=== PATIENT | female | born 1975 | race Caucasian/White ===

== ENCOUNTER 2016-07-26 00:43 | Emergency (ER) | payer MEDICAID ==
[2016-07-26] MEDS ORDERED: oxyCODONE/ACET 5/325 Prepack 4 PO STA (01:32)
[2016-07-26] MEDS ORDERED: oxyCODONE/ACET 5/325 Prepack 4 PO ONE (01:39)
[2016-07-26] MEDS ORDERED: AMOXICILLIN 250 MG Prepack 6 PO ONE (01:39)
[2016-07-26] MEDS ORDERED: AMOXICILLIN 250 MG Prepack 6 PO SCH (06:00)
== END 2016-07-26 01:55 | disposition home or self-care (01) ==
DX: K04.7 Periapical abscess without sinus (principal); F17.200 Nicotine dependence, unspecified, uncomplicated; K75.9 Inflammatory liver disease, unspecified

== ENCOUNTER 2016-08-31 15:21 | Outpatient (CLI) | payer MEDICAID | END 2016-08-31 15:22 | disposition home or self-care (01) | DX: M77.31 Calcaneal spur, right foot (principal) ==

== ENCOUNTER 2016-11-09 20:51 | Emergency (ER) | payer MEDICAID ==
[2016-11-09] MEDS ORDERED: SODIUM CHLORIDE 0.9% 1,000 ML IV ONE (22:26)
[2016-11-09] MEDS ORDERED: ONDANSETRON 4 MG/2 ML VIAL IVP STA (22:26)
--- NOTE | 2016-11-09 22:31 | ED Physician Documentation ---
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 Review of Systems Constitutional: reports: Myalgias, Fatigue. denies: Fever, Chills Eyes: denies: Decreased vision Ears: denies: Ear pain Nose: denies: Congestion Throat: denies: Sore throat Cardiac: denies: Chest pain / pressure, Palpitations Respiratory: denies: Dyspnea, Cough GI: reports: Abdominal Pain, Nausea, Vomiting, Diarrhea : denies: Dysuria, Frequency Skin: denies: Rash Musculoskeletal: denies: Neck pain Neurologic: denies: Generalized weakness, Focal weakness, Numbness PD PAST MEDICAL HISTORY - Past Medical History Cardiovascular: None Respiratory: None Neuro: Head injury Endocrine/Autoimmune: None GI: Hepatitis EMERY WHEEL MOLDER: None : Incontinence, Frequency HEENT: Other Psych: Depression Musculoskeletal: None Derm: None - Past Surgical History Past Surgical History: Yes General: Cholecystectomy Ortho: Other /EMERY WHEEL MOLDER: LEEP (Cervical surgery) Neuro: Other - Present Medications Home Medications: Ambulatory Orders Medication Instructions Recorded Confirmed Amoxicillin 500 mg PO TID #30 capsule 07/26/16 oxyCODONE/ACET 5/325 [Percocet 5 1 each PO Q4-6H PRN #12 tablet 07/26/16 mg/325 mg] Ondansetron Odt [Zofran] 4 mg TL Q6H PRN #10 tablet 11/10/16 - Allergies Allergies/Adverse Reactions: Allergies Allergy/AdvReac Type Severity Reaction Status Date / Time tramadol AdvReac Severe Itching Verified 11/09/16 21:32 hydrocodone bitartrate * AdvReac Intermediate Nausea Verified 11/09/16 21:32 [From Vicodin] Latex, Natural Rubber AdvReac Intermediate Itching Verified 11/09/16 21:32 - Social History Does the pt smoke?: Yes Smoking Status: Current every day smoker Does the pt drink ETOH?: No Does the pt have substance abuse?: Yes - Immunizations Immunizations are current?: Yes - POLST Patient has POLST: No PD ED PE NORMAL - Vitals Vital signs reviewed: Yes (Hypertensive) - General General: Well developed/nourished, Other (The patient does appear miserable.) - HEENT HEENT: Atraumatic, PERRL, EOMI, Other (Dry mucous membranes) - Neck Neck: Supple, no meningeal sign, No bony TTP - Cardiac Cardiac: RRR, No murmur - Respiratory Respiratory: No respiratory distress, Clear bilaterally - Abdomen Abdomen: Soft, Other - Back Back: No CVA TTP, No spinal TTP - Derm Derm: Normal color, Warm and dry, No rash - Extremities Extremities: No deformity, No edema - Neuro Neuro: No motor deficit, No sensory deficit - Psych Psych: Normal mood, Normal affect Results - Vitals Vitals: Vital Signs - 24 hr 11/09/16 11/10/16 21:25 00:20 Temperature 36.0 C L Heart Rate 90 83 Respiratory 17 16 Rate Blood Pressure 165/111 H 149/91 H O2 Saturation 98 97 Oxygen O2 Source Room air - Labs Labs: Laboratory Tests 11/09/16 11/09/16 11/09/16 22:40 22:40 23:35 WBC 12.7 H RBC 5.19 Hgb 15.0 Hct 45.8 MCV 88.2 MCH 29.0 MCHC 32.9 RDW 13.4 Plt Count 163 MPV 9.5 Neut # 11.3 H Lymph # 0.8 L [place] # 0.5 Eos # 0.1 Baso # 0.1 Absolute Nucleated RBC 0.00 Nucleated RBCs 0.0 Sodium 138 Potassium 3.2 L Chloride 107 Carbon Dioxide 21 Anion Gap 10.0 BUN 9 Creatinine 0.6 Estimated GFR (MDRD) 111 Glucose 144 H Calcium 9.3 Total Bilirubin 0.8 AST 18 ALT 18 Alkaline Phosphatase 78 Total Protein 7.5 Albumin 4.7 Globulin 2.8 Albumin/Globulin Ratio 1.7 Lipase 21 L Urine Color YELLOW Urine Clarity CLEAR Urine pH 5.5 Ur Specific [place] 1.025 Urine Protein TRACE Urine Glucose (UA) NEGATIVE Urine Ketones 15 H Urine Occult Blood TRACE-LYSE Urine Nitrite NEGATIVE Urine Bilirubin NEGATIVE Urine Urobilinogen 0.2 (NORMAL) Ur Leukocyte Esterase NEGATIVE Ur Microscopic Review NOT INDICATED Urine Culture Comments NOT INDICATED Urine HCG, Qual NEGATIVE Procedures - IVC sono (time) 2225 Bedside IVC sono: IVC measures (cm) (1), IVC collapsed c insp (cm) (complete), Dehydration PD MEDICAL DECISION MAKING - ED course Complexity details: reviewed old records, reviewed results, re-evaluated patient , considered differential, d/w patient ED course: 40-year-old female with no significant past medical history has developed acute nausea vomiting and diarrhea this afternoon. She is mildly dehydrated on interrogation of the inferior vena cava. Here in the emergency department she is administered intravenous saline and Zofran. She does have exposure to 2 children who have been ill with diarrhea and vomiting and they have resolved their illnesses. Departure - Departure Disposition: 01 Home, Self Care Clinical Impression: Gastroenteritis Condition: Stable Instructions: ED Gastroenteritis Viral Follow-Up: Kareen Jeronimo ARNP [Primary Care Provider] - Prescriptions: Ondansetron Odt [Zofran] 4 mg TL Q6H PRN #10 tablet PRN Reason: Nausea / Vomiting
[2016-11-09] MEDS ORDERED: ONDANSETRON 4 MG/2 ML VIAL ONE (22:32)
[2016-11-09 22:48] LABS: BASOPHILS # (AUTO) 0.1 10^3/uL (0.0-0.1); BASOPHILS % (AUTO) 0.4 %; EOSINOPHILS # (AUTO) 0.1 10^3/uL (0.0-0.7); EOSINOPHILS % (AUTO) 0.8 %; HCT - HEMATOCRIT 45.8 % (37.0-47.0); LYMPHOCYTES # (AUTO) 0.8 10^3/uL (1.5-3.5); LYMPHOCYTES % (AUTO) 6.1 %; MEAN CORPUSCULAR HGB CONC 32.9 g/dL (32.0-36.0); MEAN CORPUSCULAR VOLUME 88.2 fL (81.0-99.0); MEAN PLATELET VOLUME 9.5 fL (7.9-10.8); MONOCYTES # (AUTO) 0.5 10^3/uL (0.0-1.0); MONOCYTES % (AUTO) 3.7 %; NEUTROPHILS # (AUTO) 11.3 10^3/uL (1.5-6.6); RED BLOOD COUNT 5.19 10^6/uL (4.20-5.40); RED CELL DISTRIBUTION WIDTH 13.4 % (12.0-15.0); UNCORRECTED WHITE BLOOD COUNT 12.7 x10^3/uL; WHITE BLOOD COUNT 12.7 x10^3/uL (4.8-10.8)
[2016-11-09 23:01] LABS: ALBUMIN/GLOBULIN RATIO 1.7 (1.0-2.2); BILIRUBIN,TOTAL 0.8 mg/dL (0.2-1.0); CALCIUM 9.3 mg/dL (8.5-10.3); CREATININE 0.6 mg/dL (0.4-1.0); POTASSIUM 3.2 mmol/L (3.5-5.0); TOTAL PROTEIN 7.5 g/dL (6.7-8.2)
[2016-11-09] MEDS ORDERED: POTASSIUM BICARB 25 MEQ TABLET PO STA (23:41)
[2016-11-09 23:43] LABS: BILIRUBIN,URINE NEGATIVE (NEGATIVE); PH,URINE 5.5 PH (5.0-7.5)
[2016-11-09 23:44] LABS: UA CHARGE (STRIP ONLY) YES; UR CULTURE IF IND NOT INDICATED
[2016-11-09 23:45] LABS: HCG UR QUAL NEGATIVE
[2016-11-09] MEDS ORDERED: POTASSIUM BICARB 25 MEQ TABLET PO ONE (23:59)
[2016-11-10] MEDS ORDERED: ONDANSETRON 4 MG/2 ML VIAL IVP STA (00:01)
[2016-11-10] MEDS ORDERED: ONDANSETRON 4 MG/2 ML VIAL ONE (00:10)
[2016-11-10] MEDS ORDERED: ACETAMINOPHEN 325 MG TABLET PO STA (00:37)
[2016-11-10] MEDS ORDERED: ONDANSETRON ODT 4 MG Prepack 2 TL PRN (00:40)
[2016-11-10] MEDS ORDERED: ACETAMINOPHEN 325 MG TABLET PO ONE (00:41)
[2016-11-10] MEDS ORDERED: POTASSIUM CHLORIDE 20 MEQ TABLET PO STA (01:05)
[2016-11-10] MEDS ORDERED: POTASSIUM CHLORIDE 20 MEQ TABLET PO ONE (01:07)
[2016-11-10] MEDS ORDERED: ONDANSETRON ODT 4 MG Prepack 2 TL ONE (01:40)
[2016-11-10 01:51] VITALS: BP 141/71
== END 2016-11-10 01:52 | disposition home or self-care (01) ==
LOC: ED 20:51
DX: K52.9 Noninfective gastroenteritis and colitis, unspecified (principal); K75.9 Inflammatory liver disease, unspecified; F17.200 Nicotine dependence, unspecified, uncomplicated
CPT/HCPCS: 36415; 80053; 81003; 81025; 83690; 85025; 87045; 87046; 96374; 96376; 99283; A9270; 81001; 87086

== ENCOUNTER 2017-01-15 12:05 | Emergency (ER) | payer MEDICAID ==
--- NOTE | 2017-01-15 13:36 | ED Physician Documentation ---
PD HPI SKIN - Stated complaint Stated Complaint: LUMP UNDER R ARM - Chief complaint Chief Complaint: Wound - History obtained from History obtained from: Patient - History of Present Illness Timing - onset: How many days ago (several) Timing - duration: Days Timing - details: Gradual onset, Still present, Waxing and waning Quality / character: Painful, Other Associated symptoms: No: Fever, Myalgias Review of Systems Constitutional: denies: Fever, Chills Nose: denies: Rhinorrhea / runny nose, Congestion Throat: denies: Sore throat Respiratory: denies: Cough GI: denies: Nausea, Vomiting, Diarrhea Skin: denies: Rash PD PAST MEDICAL HISTORY - Past Medical History Past Medical History: Yes Cardiovascular: None Respiratory: None Neuro: Head injury Endocrine/Autoimmune: None GI: Hepatitis 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 : Incontinence, Frequency HEENT: Other Psych: Depression Musculoskeletal: None Derm: None - Past Surgical History Past Surgical History: Yes General: Cholecystectomy Ortho: Other /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: LEEP (Cervical surgery) Neuro: Other - Present Medications Home Medications: Ambulatory Orders Medication Instructions Recorded Confirmed Chlorhexidine Gluconate [Hibiclens] 10 ml TP DAILY #473 ml 01/15/17 Sulfamethox/Trimeth 800/160 1 each PO BID #14 tablet 01/15/17 [Bactrim Ds 800/160] - Allergies Allergies/Adverse Reactions: Allergies Allergy/AdvReac Type Severity Reaction Status Date / Time tramadol AdvReac Severe Itching Verified 01/15/17 12:32 hydrocodone bitartrate * AdvReac Intermediate Nausea Verified 01/15/17 12:32 [From Vicodin] Latex, Natural Rubber AdvReac Intermediate Itching Verified 01/15/17 12:32 - Social History Does the pt smoke?: No Smoking Status: Never smoker Does the pt drink ETOH?: No Does the pt have substance abuse?: Yes - Immunizations Immunizations are current?: Yes - POLST Patient has POLST: No PD ED PE NORMAL - Vitals Vital signs reviewed: Yes - General General: Alert and oriented X 3, No acute distress (not physically distressed, but is emotionally concerned about being bigger process, such as lymphoma. Told her to watch how they do with treating the infection and to follow up with PC if not better in a week. ), Well developed/nourished - HEENT HEENT: Atraumatic, Ears normal, Pharynx benign - Neck Neck: Supple, no meningeal sign, No adenopathy - Cardiac Cardiac: RRR, No murmur - Respiratory Respiratory: Clear bilaterally - Abdomen Abdomen: Soft, Non tender - Derm Derm: Normal color, Warm and dry - Extremities Extremities: Other (right axillary with small superficial sore that has 3 mm of fluid in it by U/S. There are few small tender nodes in the armpit. The area does not have redness nor swelling. ) - Neuro Neuro: No motor deficit, No sensory deficit Results - Vitals Vitals: Oxygen O2 Source Room air PD MEDICAL DECISION MAKING - ED course Complexity details: considered differential (the superficial abscess showed only 3mm fluid collection on U/S. deferred I&D. ), d/w patient Departure - Departure Disposition: 01 Home, Self Care Clinical Impression: Armpit abscess, Axillary adenopathy Condition: Stable Record reviewed to determine appropriate education?: Yes Instructions: ED Staph Infec Abx Tx Only Follow-Up: Kareen Jeronimo ARNP [Primary Care Provider] - Prescriptions: Chlorhexidine Gluconate [Hibiclens] 10 ml TP DAILY #473 ml Sulfamethox/Trimeth 800/160 [Bactrim Ds 800/160] 1 each PO BID #14 tablet Comments: Warm moist towels to the armpit area 3-4 times a day for the next several days. This promote blood flow to the area and tries to fight off infection. Use Bactrim antibiotic twice daily for a week. Also cleanse whole-body in the shower with chlorhexidine to reduce the amount of germs on the surface of the skin and therefore try to reduce other infections developing. Do this right regularly daily for the next week and then once or twice a week after that. Recheck if the abscess increases despite the treatment or if you develop other problems. The lymph nodes underneath should improve after a week or 2 once infection is better. Recheck if not gone during that time. Discharge Date/Time: 01/15/17 14:06
[2017-01-15 14:07] VITALS: BP 143/98
== END 2017-01-15 14:06 | disposition home or self-care (01) ==
LOC: ED 12:05
DX: L02.413 Cutaneous abscess of right upper limb (principal); R59.0 Localized enlarged lymph nodes
CPT/HCPCS: 99283

== ENCOUNTER 2017-06-04 08:00 | Outpatient (CLI) | payer MEDICAID | END 2017-06-04 08:01 | disposition home or self-care (01) | LOC: LAB.R 08:00 | PROVIDERS: ATTEND Nurse Practitioner Family | DX: N76.0 Acute vaginitis (principal) | CPT/HCPCS: 87491; 87591 ==

== ENCOUNTER 2017-07-22 23:50 | Outpatient (CLI) | payer MEDICAID | END 2017-07-22 23:51 | disposition home or self-care (01) | LOC: LAB.R 23:50 | PROVIDERS: ATTEND Nurse Practitioner Family | DX: N76.89 Other specified inflammation of vagina and vulva (principal) | CPT/HCPCS: 87070 ==

== ENCOUNTER 2017-11-28 09:48 | Emergency (ER) | payer MEDICAID ==
[2017-11-28 10:02] VITALS: BP 135/77
[2017-11-28] MEDS ORDERED: IBUPROFEN 400 MG TABLET PO STA (10:12)
--- NOTE | 2017-11-28 10:19 | ED Physician Documentation ---
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 : Incontinence, Frequency HEENT: Other Psych: Depression Musculoskeletal: None Derm: None - Past Surgical History Past Surgical History: Yes General: Cholecystectomy Ortho: Other /MANAGING PARTNER: LEEP (Cervical surgery) Neuro: Other - Present Medications Home Medications: Ambulatory Orders Medication Instructions Recorded Confirmed No Known Home Medications [No 11/28/17 11/28/17 Known Home Medications] - Allergies Allergies/Adverse Reactions: Allergies Allergy/AdvReac Type Severity Reaction Status Date / Time tramadol AdvReac Severe Itching Verified 11/28/17 10:01 hydrocodone bitartrate * AdvReac Intermediate Nausea Verified 11/28/17 10:01 [From Vicodin] Latex, Natural Rubber AdvReac Intermediate Itching Verified 11/28/17 10:01 - Social History Does the pt smoke?: No Smoking Status: Never smoker Does the pt drink ETOH?: No Does the pt have substance abuse?: Yes - Immunizations Immunizations are current?: Yes - POLST Patient has POLST: No PD ED PE NORMAL - Vitals Vital signs reviewed: Yes - Extremities Extremities: Other (R great toe swollen and ecchymotic and tender, less TTP distal 1st MT, no open wound, MSV intact) Results - Vitals Vitals: Vital Signs - 24 hr 11/28/17 10:00 Temperature 36.8 C Heart Rate 76 Respiratory 16 Rate Blood Pressure 135/77 H O2 Saturation 99 Oxygen O2 Source Room air PD MEDICAL DECISION MAKING - ED course ED course: I explained the importance of 1st toe and stress is bears with walking and suggested crutches to minimize chance of displacement but pt declines and req a walking boot - Sepsis Event Vital Signs: Vital Signs - 24 hr 11/28/17 10:00 Temperature 36.8 C Heart Rate 76 Respiratory 16 Rate Blood Pressure 135/77 H O2 Saturation 99 Oxygen O2 Source Room air Departure - Departure Disposition: 01 Home, Self Care Clinical Impression: Fractured great toe Qualifiers: Encounter type: initial encounter Fracture type: closed Phalanx: proximal Fracture alignment: nondisplaced Laterality: right Qualified Code(s): S92.414A - Nondisplaced fracture of proximal phalanx of right great toe, initial encounter for closed fracture Condition: Good Instructions: ED Fx Toe Closed Follow-Up: [facility] [Provider Group] Comments: You have fractured your great toe Right now it is not displaced I suggested crutches to prevent the stress of weight bearing from shifting the bones - but you declined and preferred a boot. Please follow up with orthopedics - you need to call to schedule Motrin and tylenol as needed for the pain
--- NOTE | 2017-11-28 10:43 | XRAY Report ---
Procedure Date: 11/28/2017 Accession Number: [id number] / [id number] Procedure: XR - Foot 3 View RT CPT Code: FULL RESULT: EXAM: RIGHT FOOT RADIOGRAPHY EXAM DATE: 11/28/2017 10:07 AM. CLINICAL HISTORY: Trauma. COMPARISON: None. TECHNIQUE: 3 views. FINDINGS: Bones: Fracture of the first middle phalanx with extension to the distal interphalangeal joint, minimally displaced. Joints: Normal. No subluxations. Soft Tissues: Normal. No soft tissue swelling. IMPRESSION: Fracture of the first middle phalanx as described. RADIA
== END 2017-11-28 10:54 | disposition home or self-care (01) ==
LOC: ED 09:48
DX: S92.414A Nondisplaced fracture of proximal phalanx of right great toe, initial encounter for closed fracture (principal); W22.8XXA Striking against or struck by other objects, initial encounter
CPT/HCPCS: 73630; 99282; 99283; A9270

== ENCOUNTER 2018-03-05 20:11 | Outpatient (CLI) | payer MEDICAID | END 2018-03-05 20:12 | disposition critical access hospital (66) | LOC: EMS 20:11 | PROVIDERS: ATTEND Surgery | DX: H92.09 Otalgia, unspecified ear (principal) | CPT/HCPCS: A0425; A0429; A0999 ==

== ENCOUNTER 2018-03-05 20:32 | Emergency (ER) | payer MEDICAID ==
--- NOTE | 2018-03-05 22:55 | ED Physician Documentation ---
PD HPI HEENT - Stated complaint Stated Complaint: EAR PAIN - Chief complaint Chief Complaint: Heent - History obtained from History obtained from: Patient - History of Present Illness Timing - onset: Today Timing - duration: Hours Timing - details: Abrupt onset, Still present Location: Right ear, Sinuses. No: Left ear, Nose Improves: No: Medication Worsens: Swalllowing Associated symptoms: Congestion. No: Fever, Swollen nodes, Cough Similar symptoms before: Has not had sx before Recently seen: Not recently seen Review of Systems Constitutional: denies: Fever, Chills, Myalgias Ears: reports: Loss of hearing, Ear pain. 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 : Incontinence, Frequency HEENT: Other Psych: Depression Musculoskeletal: None Derm: None - Past Surgical History Past Surgical History: Yes General: Cholecystectomy Ortho: Other /SHOT HOLE SHOOTER: LEEP (Cervical surgery) Neuro: Other - Present Medications Home Medications: Ambulatory Orders Medication Instructions Recorded Confirmed Amoxicillin 500 mg PO TID #21 capsule 03/05/18 Cetirizine [ZyrTEC] 10 mg PO DAILY #15 tablet 03/05/18 Dexamethasone [Decadron] 4 mg PO DAILY #5 tablet 03/05/18 Oxycodone HCl/Acetaminophen 1 each PO Q6H PRN #10 tablet 03/05/18 [Percocet 5-325 mg Tablet] - Allergies Allergies/Adverse Reactions: Allergies Allergy/AdvReac Type Severity Reaction Status Date / Time tramadol AdvReac Severe Itching Verified 03/05/18 20:51 hydrocodone bitartrate * AdvReac Intermediate Nausea Verified 03/05/18 20:51 [From Vicodin] Latex, Natural Rubber AdvReac Intermediate Itching Verified 03/05/18 20:51 - Social History Does the pt smoke?: No Smoking Status: Never smoker Does the pt drink ETOH?: No Does the pt have substance abuse?: Yes - Immunizations Immunizations are current?: Yes - POLST Patient has POLST: No PD ED PE NORMAL - Vitals Vital signs reviewed: Yes - General General: Alert and oriented X 3, No acute distress, Well developed/nourished - HEENT HEENT: Moist mucous membranes, Pharynx benign. No: Ears normal (left normal; right markedly red with swelling of TM. Canal is okay. ) - Neck Neck: Supple, no meningeal sign, No adenopathy - Cardiac Cardiac: RRR, No murmur - Respiratory Respiratory: Clear bilaterally - Derm Derm: Normal color, Warm and dry - Neuro Neuro: Alert and oriented X 3, No motor deficit, Normal speech Results - Vitals Vitals: Oxygen O2 Source Room air PD MEDICAL DECISION MAKING - ED course Complexity details: considered differential (very red and painful right ear. ), d/w patient Departure - Departure Disposition: Home, Self Care Clinical Impression: Otitis media Qualifiers: Otitis media type: suppurative Chronicity: acute Laterality: right Recurrence: not specified as recurrent Spontaneous tympanic membrane rupture: without spontaneous rupture Qualified Code(s): H66.001 - Acute suppurative otitis media without spontaneous rupture of ear drum, right ear Condition: Stable Record reviewed to determine appropriate education?: Yes Instructions: ED Otitis Media Acute Adult Follow-Up: Kareen Jeronimo ARNP [Primary Care Provider] - Prescriptions: Amoxicillin 500 mg PO TID #21 capsule Cetirizine [ZyrTEC] 10 mg PO DAILY #15 tablet Dexamethasone [Decadron] 4 mg PO DAILY #5 tablet Oxycodone HCl/Acetaminophen [Percocet 5-325 mg Tablet] 1 each PO Q6H PRN #10 tablet PRN Reason: pain Comments: Drink lots of fluids. Amoxicillin as directed for a week. Decadron for inflammation daily for the next 5 days. Cetirizine daily for the next week or 2. Add Tylenol or oxycodone if needed for pains. Recheck if not improving over the next few days. Discharge Date/Time: 03/06/18 00:04
[2018-03-05 22:56] VITALS: BP 140/81
[2018-03-05] MEDS ORDERED: DEXAMETHASONE 10 MG/ML VIAL PO STA (23:12)
[2018-03-05] MEDS ORDERED: AMOXICILLIN 250 MG CAPSULE PO STA (23:12)
[2018-03-05] MEDS ORDERED: NAPROXEN 250 MG TABLET PO STA (23:12)
[2018-03-05] MEDS ORDERED: CHERRY SYRUP 10 ML UDC PO ONE (23:24)
[2018-03-05] MEDS ORDERED: oxyCODONE 5 MG TABLET PO STA (23:28)
== END 2018-03-06 00:04 | disposition home or self-care (01) ==
LOC: EDUNIT# → ED 20:32
DX: H66.001 Acute suppurative otitis media without spontaneous rupture of ear drum, right ear (principal)
CPT/HCPCS: 99283; A9270

== ENCOUNTER 2018-07-22 21:38 | Outpatient (CLI) | payer MEDICAID | END 2018-07-22 21:39 | disposition critical access hospital (66) | LOC: EMS 21:38 | PROVIDERS: ATTEND Surgery | DX: K62.5 Hemorrhage of anus and rectum (principal) | CPT/HCPCS: A0425; A0429; A0999 ==

== ENCOUNTER 2018-07-22 21:59 | Emergency (ER) | payer MEDICAID ==
--- NOTE | 2018-07-22 21:58 | ED Physician Documentation ---
PD HPI GI BLEED - Stated complaint Stated Complaint: RECTAL BLEED - History obtained from History obtained from: Patient
[2018-07-22 22:41] LABS: BASOPHILS # (AUTO) 0.1 10^3/uL (0.0-0.1); BASOPHILS % (AUTO) 0.7 %; EOSINOPHILS # (AUTO) 0.2 10^3/uL (0.0-0.7); EOSINOPHILS % (AUTO) 2.1 %; HGB - HEMOGLOBIN 13.8 g/dL (12.0-16.0); LYMPHOCYTES # (AUTO) 4.9 10^3/uL (1.5-3.5); LYMPHOCYTES % (AUTO) 47.6 %; MEAN CORPUSCULAR HEMOGLOBIN 29.6 pg (27.0-31.0); MEAN CORPUSCULAR VOLUME 89.8 fL (81.0-99.0); MEAN PLATELET VOLUME 9.2 fL (7.9-10.8); MONOCYTES # (AUTO) 0.6 10^3/uL (0.0-1.0); NEUTROPHILS # (AUTO) 4.5 10^3/uL (1.5-6.6); NEUTROPHILS % (AUTO) 43.6 %; PLT - PLATELET COUNT 181 10^3/uL (130-450); RED BLOOD COUNT 4.66 10^6/uL (4.20-5.40); RED CELL DISTRIBUTION WIDTH 13.1 % (12.0-15.0); WHITE BLOOD COUNT 10.3 x10^3/uL (4.8-10.8)
[2018-07-22 23:01] LABS: ALBUMIN 4.2 g/dL (3.2-5.5); ALBUMIN/GLOBULIN RATIO 1.6 (1.0-2.2); BILIRUBIN,TOTAL 0.3 mg/dL (0.2-1.0); CALCIUM 9.3 mg/dL (8.5-10.3); CREATININE 0.6 mg/dL (0.4-1.0); TOTAL PROTEIN 6.9 g/dL (6.7-8.2)
[2018-07-22] MEDS: SODIUM CHLORIDE 0.9% 1,000 ML IV ONE (23:10)
[2018-07-22] MEDS ORDERED: IOVERSOL 320 100 ML VIAL IVP ONE (23:45)
[2018-07-23] MEDS: IOVERSOL 320 100 ML VIAL IVP ONE (00:58)
--- NOTE | 2018-07-23 01:39 | CT Report ---
Reason: lower GI bleeding; left abd pain Procedure Date: 07/23/2018 Accession Number: [id number] / [id number] Procedure: CT - Abdomen/Pelvis W CPT Code: FULL RESULT: EXAM: CT ABDOMEN AND PELVIS EXAM DATE: 07/23/2018 12:59 AM. CLINICAL HISTORY: Lower GI bleeding; left abdominal pain. COMPARISONS: ABD/PEL 06/14/2007 12:35 PM. TECHNIQUE: Routine helical CT imaging was performed through the abdomen and pelvis. IV contrast: [id number] 100ML. Enteric contrast: No. Reconstructions: Coronal and sagittal. In accordance with CT protocol optimization, one or more of the following dose reduction techniques were utilized for this exam: automated exposure control, adjustment of mA and/or KV based on patient size, or use of iterative reconstructive technique. FINDINGS: Lung Bases: Unremarkable. Liver: No focal lesion identified. Gallbladder/Bile Ducts: Status post cholecystectomy. Spleen: Normal. Pancreas: Normal. Adrenal Glands: Normal. Kidneys: Normal. No masses or hydronephrosis. Peritoneal Cavity/Bowel: Moderate stool in the colon, right greater than left. Colonic diverticula. No diverticulitis identified. No free air or free fluid. No bowel obstruction seen. No lymphadenopathy. Appendix appears normal. Pelvic Organs: Uterus is not seen. There is possible rectal prolapse. Urinary bladder is unremarkable. Vasculature: No aneurysms or other significant abnormality. Bones: No significant abnormality. Other: None. IMPRESSION: 1. No acute inflammatory or obstructive process seen in the abdomen or pelvis. 2. Moderate stool in the colon, right greater than left. 3. Possible mild rectal prolapse. RADIA
--- NOTE | 2018-07-23 01:55 | ED Physician Documentation ---
PD HPI GI BLEED - Stated complaint Stated Complaint: RECTAL BLEED - Chief complaint Chief Complaint: General - History obtained from History obtained from: Patient - History of Present Illness Timing - onset: How many days ago (few days of noting red blood with wiping after BM. Says it has been formed without hard. Today had more red blood after BM and then had another urge to defecate and it came out just bright red blood enough to color toilet. No dark stool.) Timing - duration: Days Timing - details: Gradual onset, Still present (increased today, was just small amount with wiping recent days, and she thought likely hemorrhoid. Denies rectal tenderness. Has had some lower abd cramping pains, more to left, the past few days.) Associated symptoms: BRBPR, Abdominal pain (lower left abd intermittently). No: Vomiting, Coffee ground emesis, Maroon stool, Black/tarry stool, Diarrhea, Constipation Contributing factors: No: Sick contact, Bad food, Recent antibiotics Improved by: No: Eating Worsened by: Palpation. No: Eating, Position Similar symptoms before: Has not had sx before Recently seen: Not recently seen Review of Systems Constitutional: reports: Myalgias. denies: Fever, Chills Nose: denies: Rhinorrhea / runny nose, Congestion Throat: denies: Sore throat Cardiac: denies: Chest pain / pressure Respiratory: denies: Dyspnea, Cough GI: reports: Abdominal Pain, Nausea, Bloody / black stool. 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 : Incontinence, Frequency HEENT: Other Psych: Depression Musculoskeletal: None Derm: None - Past Surgical History Past Surgical History: Yes General: Cholecystectomy Ortho: Other /AUDIO TECHNICIAN: LEEP (Cervical surgery) Neuro: Other - Present Medications Home Medications: Ambulatory Orders Medication Instructions Recorded Confirmed Amoxicillin 500 mg PO TID #21 capsule 03/05/18 Cetirizine [ZyrTEC] 10 mg PO DAILY #15 tablet 03/05/18 Dexamethasone [Decadron] 4 mg PO DAILY #5 tablet 03/05/18 Oxycodone HCl/Acetaminophen 1 each PO Q6H PRN #10 tablet 03/05/18 [Percocet 5-325 mg Tablet] Hydrocortisone Acetate [Anucort-Hc] 25 mg RC BID #10 supp.rect 07/23/18 Psyllium Husk [Metamucil] 0.4 gm PO DAILY #30 capsule 07/23/18 - Allergies Allergies/Adverse Reactions: Allergies Allergy/AdvReac Type Severity Reaction Status Date / Time tramadol AdvReac Severe Itching Verified 07/22/18 22:04 hydrocodone bitartrate * AdvReac Intermediate Nausea Verified 07/22/18 22:04 [From Vicodin] Latex, Natural Rubber AdvReac Intermediate Itching Verified 07/22/18 22:04 - Social History Does the pt smoke?: No Smoking Status: Never smoker Does the pt drink ETOH?: No Does the pt have substance abuse?: Yes - Immunizations Immunizations are current?: Yes - POLST Patient has POLST: No PD ED PE NORMAL - Vitals Vital signs reviewed: Yes - General General: Alert and oriented X 3, No acute distress, Well developed/nourished - HEENT HEENT: Pharynx benign - Neck Neck: Supple, no meningeal sign, No adenopathy - Cardiac Cardiac: RRR, No murmur - Respiratory Respiratory: Clear bilaterally - Abdomen Abdomen: Normal bowel sounds, Soft, Non distended, No organomegaly, Other (tender lower abd midline and left. Not tender right side as much. no percussion nor rebound tenderness. 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 Small internal hemorrhoid that was tender but no bleeding at this time. There was some mild red blood on fingertip from above that area. ) - Back Back: No CVA TTP - Derm Derm: Normal color, Warm and dry Results - Vitals Vitals: Vital Signs - 24 hr 07/22/18 07/22/18 07/23/18 22:04 22:09 00:53 Temperature 36.7 C 36.7 C Heart Rate 64 64 Respiratory 16 16 17 Rate Blood Pressure 108/67 108/67 O2 Saturation 98 98 07/23/18 02:08 Temperature Heart Rate 74 Respiratory 17 Rate Blood Pressure 110/72 O2 Saturation 98 Oxygen O2 Source Room air - Labs Labs: Laboratory Tests 07/22/18 07/22/18 22:33 22:33 WBC 10.3 RBC 4.66 Hgb 13.8 Hct 41.8 MCV 89.8 MCH 29.6 MCHC 33.0 RDW 13.1 Plt Count 181 MPV 9.2 Neut # (Auto) 4.5 Lymph # (Auto) 4.9 H [place] # (Auto) 0.6 Eos # (Auto) 0.2 Baso # (Auto) 0.1 Absolute Nucleated RBC 0.01 Nucleated RBC % 0.1 Sodium 137 Potassium 4.0 Chloride 102 Carbon Dioxide 27 Anion Gap 8.0 BUN 12 Creatinine 0.6 Estimated GFR (MDRD) 110 Glucose 91 Calcium 9.3 Total Bilirubin 0.3 AST 16 ALT 15 Alkaline Phosphatase 71 Total Protein 6.9 Albumin 4.2 Globulin 2.7 Albumin/Globulin Ratio 1.6 Lipase 43 - Rads (name of study) abd CT Radiology: Prelim report reviewed (Normal appendix. No acute process seen. No evidence for diverticulitis. Moderate stool burden in the lower colon.), See rad report PD MEDICAL DECISION MAKING - ED course Complexity details: reviewed results, considered differential (Rectal exam showed a small internal hemorrhoid but no bleeding right now. There was a little bit of red blood on my fingertip after rectal exam with mild soft stool or mucus. This would be consistent with some inflammation of the lower rectum and colon. There is some tenderness in the abdomen so I would be concerned for colitis or possible diverticulitis. We will get CT scan and lab tests.), d/w patient Departure - Departure Disposition: 01 Home, Self Care Clinical Impression: Acute lower GI bleeding Condition: Stable Record reviewed to determine appropriate education?: Yes Instructions: ED Hematochezia Stable Follow-Up: Kareen Jeronimo ARNP [Primary Care Provider] - Prakash Singh MD [Provider Admit Priv/Credential] - Prescriptions: Hydrocortisone Acetate [Anucort-Hc] 25 mg RC BID #10 supp.rect Psyllium Husk [Metamucil] 0.4 gm PO DAILY #30 capsule Comments: Your CT scan is good without any signs of localized infection or inflammation such as diverticulitis or colitis. Presume there is some inflammation in the rectum area as well as the internal hemorrhoid. Use the hydrocortisone suppository twice daily for the next 5 days to reduce irritation there. Stay well-hydrated. You can use a fiber stool softener daily. Recheck if not improved over the next few days. If you have persistent bleeding in the stool, follow-up with your primary care or more appropriately the surgery office for potential sigmoidoscopy or colonoscopy to better evaluate. Discharge Date/Time: 07/23/18 02:10
[2018-07-23] MEDS: HYDROCORTISONE 25 MG SUPPOSITORY PR STA (01:57)
[2018-07-23 02:09] VITALS: BP 110/72
== END 2018-07-23 02:10 | disposition home or self-care (01) ==
LOC: EDUNIT# → ED 21:59
DX: K92.2 Gastrointestinal hemorrhage, unspecified (principal); K64.8 Other hemorrhoids
CPT/HCPCS: 36415; 74177; 80053; 83690; 85025; 96360; 99283; 99284

== ENCOUNTER 2018-11-05 09:53 | Emergency (ER) | payer MEDICAID ==
[2018-11-05 10:04] VITALS: BP 125/77
--- NOTE | 2018-11-05 10:12 | ED Physician Documentation ---
PD HPI UPPER EXT INJURY - Stated complaint Stated Complaint: SHOULDER PX - Chief complaint Chief Complaint: Ext Problem - History obtained from History obtained from: Patient - History of Present Illness Location: Left, Shoulder Type of injury: Other (She states her shoulder started hurting after carrying heavy bags of groceries. There is no fall or impact. It hurts with certain motions of the shoulder.). No: Fall, Twist Where injury occurred: Home Timing - onset: How many days ago (2) Timing - duration: Days (2) Timing - details: Abrupt onset, Still present, Waxing and waning Improved by: Rest Worsened by: Moving Associated symptoms: No: Weakness, Numbness, Swelling Similar symptoms before: Has not had sx before Review of Systems Constitutional: denies: Fever, Chills, Myalgias Throat: denies: Sore throat Cardiac: denies: Chest pain / pressure Respiratory: denies: Dyspnea PD PAST MEDICAL HISTORY - Past Medical History Cardiovascular: None Respiratory: None Endocrine/Autoimmune: None GI: Hepatitis, Other (no prior diverticulitis nor crohns) 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 : Incontinence, Frequency HEENT: Other Psych: Depression Musculoskeletal: None Derm: None - Past Surgical History Past Surgical History: Yes General: Cholecystectomy Ortho: Other /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 TRACTOR OPERATOR: LEEP (Cervical surgery) Neuro: Other - Present Medications Home Medications: Ambulatory Orders Medication Instructions Recorded Confirmed Amoxicillin 500 mg PO TID #21 capsule 03/05/18 Cetirizine [ZyrTEC] 10 mg PO DAILY #15 tablet 03/05/18 Oxycodone HCl/Acetaminophen 1 each PO Q6H PRN #10 tablet 03/05/18 [Percocet 5-325 mg Tablet] dexAMETHasone [Decadron] 4 mg PO DAILY #5 tablet 03/05/18 Hydrocortisone Acetate [Anucort-Hc] 25 mg RC BID #10 supp.rect 07/23/18 Psyllium Husk [Metamucil] 0.4 gm PO DAILY #30 capsule 07/23/18 Hydrocodone/Acetaminophen [[place] 1 each PO Q6H PRN #12 tablet 11/05/18 5-325 Tablet] Naproxen 500 mg PO BID #20 tablet 11/05/18 - Allergies Allergies/Adverse Reactions: Allergies Allergy/AdvReac Type Severity Reaction Status Date / Time tramadol AdvReac Severe Itching Verified 07/17/19 15:53 Latex, Natural Rubber AdvReac Intermediate Itching Verified 11/05/18 15:53 - Social History Does the pt smoke?: No Smoking Status: Never smoker Does the pt drink ETOH?: No Does the pt have substance abuse?: Yes - Immunizations Immunizations are current?: Yes - POLST Patient has POLST: No PD ED PE NORMAL - Vitals Vital signs reviewed: Yes - General General: Alert and oriented X 3, No acute distress, Well developed/nourished - Cardiac Cardiac: RRR, No murmur - Respiratory Respiratory: Clear bilaterally - Derm Derm: Normal color, Warm and dry, No rash - Extremities Extremities: Other (She actually has pretty good range of motion of the left shoulder. It seems to hurt more with abduction and internal rotation and flexion at the shoulder. However she still does have good motion in those directions. There is no obvious redness or swelling of the shoulder. There is no obvious deformity.) - Neuro Neuro: No motor deficit, No sensory deficit Results - Vitals Vitals: Vital Signs - 24 hr 11/05/18 10:00 Temperature 36.0 C L Heart Rate 74 Respiratory 18 Rate Blood Pressure 125/77 O2 Saturation 100 Oxygen O2 Source Room air PD MEDICAL DECISION MAKING - ED course Complexity details: considered differential (Sounds like some muscle strain or tendinitis after carrying heavy bags. No obvious indication for x-rays. We will treated with anti-inflammatories and intermittent use of the sling. It does not sound like a rotator cuff tear but she should still do range of motion exercises periodically over the next few days.), d/w patient Departure - Departure Disposition: 01 Home, Self Care Clinical Impression: Left shoulder tendonitis Condition: Stable Record reviewed to determine appropriate education?: Yes Instructions: ED Sprain Shoulder Follow-Up: [facility] [Provider Group] Prescriptions: Hydrocodone/Acetaminophen [[place] 5-325 Tablet] 1 each PO Q6H PRN #12 tablet PRN Reason: Pain Naproxen 500 mg PO BID #20 tablet Comments: This sounds like a strain or inflammation of the shoulder muscle and tendon. This should improve with less use of the left shoulder with no heavy lifting or push pole. You could use the sling periodically to reduce motion in there as well. Be sure to have range of motion of the shoulder gently several times a day so it does not get stiff. Use a sling just short-term for the next several days or so until this is improving. Avoid heavy lifting and such for likely week or so. Naproxen anti-inflammatory twice daily for the next week. Add Tylenol or hydrocodone if needed for pains. Recheck if not improved over the next several days to week. Discharge Date/Time: 11/05/18 10:34
[2018-11-05] MEDS ORDERED: NAPROXEN 250 MG TABLET PO STA (10:24)
[2018-11-05] MEDS ORDERED: ACETAMINOPHEN 325 MG TABLET PO STA (10:24)
== END 2018-11-05 10:34 | disposition home or self-care (01) ==
LOC: ED 09:53
DX: M70.812 Other soft tissue disorders related to use, overuse and pressure, left shoulder (principal); X50.0XXA Overexertion from strenuous movement or load, initial encounter; Y93.89 Activity, other specified; Y92.009 Unspecified place in unspecified non-institutional (private) residence as the place of occurrence of the external cause
CPT/HCPCS: 99282; 99284; A9270

== ENCOUNTER 2018-11-05 15:24 | Outpatient (CLI) | payer MEDICAID | END 2018-11-05 15:25 | disposition critical access hospital (66) | LOC: EMS 15:24 | PROVIDERS: ATTEND Surgery | DX: M25.512 Pain in left shoulder (principal); W01.0XXA Fall on same level from slipping, tripping and stumbling without subsequent striking against object, initial encounter; Y92.811 Bus as the place of occurrence of the external cause | CPT/HCPCS: A0425; A0429; A0999 ==

== ENCOUNTER 2018-11-05 15:43 | Emergency (ER) | payer MEDICAID ==
--- NOTE | 2018-11-05 15:55 | ED Physician Documentation ---
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 Given sling and meds. She now fell onto shoulder. 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 : Incontinence, Frequency HEENT: Other Psych: Depression Musculoskeletal: None Derm: None - Past Surgical History Past Surgical History: Yes General: Cholecystectomy Ortho: Other /PERFORATOR: LEEP (Cervical surgery) Neuro: Other - Present Medications Home Medications: Ambulatory Orders Medication Instructions Recorded Confirmed Amoxicillin 500 mg PO TID #21 capsule 03/05/18 Cetirizine [ZyrTEC] 10 mg PO DAILY #15 tablet 03/05/18 Oxycodone HCl/Acetaminophen 1 each PO Q6H PRN #10 tablet 03/05/18 [Percocet 5-325 mg Tablet] dexAMETHasone [Decadron] 4 mg PO DAILY #5 tablet 03/05/18 Hydrocortisone Acetate [Anucort-Hc] 25 mg RC BID #10 supp.rect 07/23/18 Psyllium Husk [Metamucil] 0.4 gm PO DAILY #30 capsule 07/23/18 Hydrocodone/Acetaminophen [[place] 1 each PO Q6H PRN #12 tablet 11/05/18 5-325 Tablet] Naproxen 500 mg PO BID #20 tablet 11/05/18 - Allergies Allergies/Adverse Reactions: Allergies Allergy/AdvReac Type Severity Reaction Status Date / Time tramadol AdvReac Severe Itching Verified 11/05/18 15:53 Latex, Natural Rubber AdvReac Intermediate Itching Verified 11/05/18 15:53 - Social History Does the pt smoke?: No Smoking Status: Never smoker Does the pt drink ETOH?: No Does the pt have substance abuse?: Yes - Immunizations Immunizations are current?: Yes - POLST Patient has POLST: No PD ED PE NORMAL - Vitals Vital signs reviewed: Yes - General General: Alert and oriented X 3, Well developed/nourished - HEENT HEENT: Atraumatic - Derm Derm: Normal color, Warm and dry - Extremities Extremities: Other (left shoulder tender over anterior aspect. No bony deformity.) Results - Vitals Vitals: Vital Signs - 24 hr 11/05/18 11/05/18 15:51 17:07 Temperature 36.7 C 36.0 C L Heart Rate 56 L 60 Respiratory 18 16 Rate Blood Pressure 122/77 116/77 O2 Saturation 100 98 Oxygen O2 Source Room air - Rads (name of study) left shoulder Radiology: Prelim report reviewed (no fractures nor dislocations. ), EMP read contemporaneously, See rad report PD MEDICAL DECISION MAKING - ED course Complexity details: reviewed results, considered differential, d/w patient Departure - Departure Disposition: 01 Home, Self Care Clinical Impression: Left shoulder strain Qualifiers: Encounter type: initial encounter Qualified Code(s): S46.912A - Strain of unspecified muscle, fascia and tendon at shoulder and upper arm level, left arm, initial encounter Accidental fall Qualifiers: Encounter type: initial encounter Qualified Code(s): W19.XXXA - Unspecified fall, initial encounter Condition: Stable Record reviewed to determine appropriate education?: Yes Instructions: ED Sprain Shoulder Follow-Up: [facility] [Provider Group] Comments: Your xray appears okay, so no bony problem. Still have the ligaments/muscles to cause pains. Continue the sling and prior medications. Follow up with Ortho in about a week. Discharge Date/Time: 11/05/18 17:08
[2018-11-05] MEDS ORDERED: HYDROcod/ACETAM 5/325 MG TABLET PO STA (16:02)
[2018-11-05] MEDS ORDERED: ONDANSETRON ODT 4 MG TABLET TL STA (16:40)
--- NOTE | 2018-11-05 17:02 | XRAY Report ---
Reason: fell onto left shoulder again today Procedure Date: 11/05/2018 Accession Number: [id number] / [id number] Procedure: XR - Shoulder 3 View LT CPT Code: FULL RESULT: EXAM: LEFT SHOULDER RADIOGRAPHY EXAM DATE: 11/05/2018 04:43 PM. CLINICAL HISTORY: Fall, pain. COMPARISON: None. TECHNIQUE: 3 views. FINDINGS: Bones: Osteopenia of proximal humerus, more than expected in this age group. No definite cortical disruption, bone destruction, or periosteal reaction. Small calcification medial to the proximal humeral diametaphysis, of uncertain significance. Joints: The glenohumeral and acromioclavicular joints are normal. Soft tissues: Clear visualized lung. IMPRESSION: Questionable findings in proximal humerus on internal rotation view, of uncertain significance. Depending on clinical setting, follow-up imaging may be helpful. RADIA
[2018-11-05 17:08] VITALS: BP 116/77
== END 2018-11-05 17:08 | disposition home or self-care (01) ==
LOC: EDUNIT# → ED 15:43
DX: S46.912A Strain of unspecified muscle, fascia and tendon at shoulder and upper arm level, left arm, initial encounter (principal); W01.0XXA Fall on same level from slipping, tripping and stumbling without subsequent striking against object, initial encounter; Y92.410 Unspecified street and highway as the place of occurrence of the external cause; M70.812 Other soft tissue disorders related to use, overuse and pressure, left shoulder; X50.0XXA Overexertion from strenuous movement or load, initial encounter; Y93.89 Activity, other specified; Y92.009 Unspecified place in unspecified non-institutional (private) residence as the place of occurrence of the external cause
CPT/HCPCS: 73030; 99282; 99284; A9270; Q0162

== ENCOUNTER 2018-12-10 15:31 | Outpatient (CLI) | payer MEDICAID ==
[2018-12-10 20:54] LABS: CANDIDA GROUP DNA NEGATIVE (NEGATIVE); CANDIDA KRUSEI DNA NEGATIVE (NEGATIVE); TRICHOMONAS VAGINALIS DNA NEGATIVE (NEGATIVE)
== END 2018-12-10 23:59 | disposition home or self-care (01) ==
LOC: LAB.R 15:31
PROVIDERS: ATTEND Family Medicine
DX: L29.8 Other pruritus (principal); N89.8 Other specified noninflammatory disorders of vagina
CPT/HCPCS: 87661; 87801

== ENCOUNTER 2018-12-11 08:00 | Outpatient (CLI) | payer MEDICAID | END 2018-12-11 23:59 | disposition home or self-care (01) | LOC: LAB.R 08:00 | PROVIDERS: ATTEND Family Medicine | DX: R30.0 Dysuria (principal) | CPT/HCPCS: 87086 ==

== ENCOUNTER 2019-01-16 01:56 | Outpatient (CLI) | payer MEDICAID | END 2019-01-16 01:57 | disposition critical access hospital (66) | LOC: EMS 01:56 | PROVIDERS: ATTEND Surgery | DX: R30.0 Dysuria (principal) | CPT/HCPCS: A0425; A0429 ==

== ENCOUNTER 2019-01-16 02:18 | Emergency (ER) | payer MEDICAID ==
--- NOTE | 2019-01-16 02:44 | ED Physician Documentation ---
History of Present Illness - Stated complaint Stated Complaint: FEM - Chief complaint Chief Complaint: Abd Pain - Additonal information Additional information: This is a 43-year-old female with a history of a hysterectomy, as well as a bl adder sling, who presents with dysuria. Patient states that she was going to the bathroom at around 10:50 PM tonight when she had sudden onset of some dysuria and pain that radiated from her urethra all the way up to her fingertips bilaterally. She states that the pain was persistent, focused over the urethra and she has had a feeling of urgency but has been able to void very little since this occurred. She denies any fever. She has noted a small amount of blood in her urine. She denies concern for STD. She has no internal vaginal pain or deep pelvic pain, the discomfort is localized to the urethra itself. 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 HEENT: Other Psych: Depression Musculoskeletal: None Derm: None - Past Surgical History Past Surgical History: Yes General: Cholecystectomy Ortho: Other /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: LEEP (Cervical surgery) Neuro: Other - Present Medications Home Medications: Ambulatory Orders Medication Instructions Recorded Confirmed Amoxicillin 500 mg PO TID #21 capsule 03/05/18 Cetirizine [ZyrTEC] 10 mg PO DAILY #15 tablet 03/05/18 Oxycodone HCl/Acetaminophen 1 each PO Q6H PRN #10 tablet 03/05/18 [Percocet 5-325 mg Tablet] dexAMETHasone [Decadron] 4 mg PO DAILY #5 tablet 03/05/18 Hydrocortisone Acetate [Anucort-Hc] 25 mg RC BID #10 supp.rect 07/23/18 Psyllium Husk [Metamucil] 0.4 gm PO DAILY #30 capsule 07/23/18 Hydrocodone/Acetaminophen [[place] 1 each PO Q6H PRN #12 tablet 11/05/18 5-325 Tablet] Naproxen 500 mg PO BID #20 tablet 11/05/18 Cephalexin [Keflex] 500 mg PO Q6H #28 capsule 01/16/19 - Allergies Allergies/Adverse Reactions: Allergies Allergy/AdvReac Type Severity Reaction Status Date / Time tramadol AdvReac Severe Itching Verified 11/05/18 15:53 Latex, Natural Rubber AdvReac Intermediate Itching Verified 11/05/18 15:53 - Social History Does the pt smoke?: No Smoking Status: Never smoker Does the pt drink ETOH?: No Does the pt have substance abuse?: Yes - Immunizations Immunizations are current?: Yes - POLST Patient has POLST: No PD ED PE NORMAL - Vitals Vital signs reviewed: Yes - General General: Alert and oriented X 3, No acute distress - HEENT HEENT: PERRL - Neck Neck: Supple, no meningeal sign - Cardiac Cardiac: RRR, No murmur - Respiratory Respiratory: Clear bilaterally - Abdomen Abdomen: Normal bowel sounds, Soft, Non distended, Other (Mild suprapubic tenderness bilaterally. Abdomen is otherwise nontender.) - Female Female : Other (Chaperoned by MOON Farrell. External vulva, and urethra are normal in appearance, there are no lesions, or abnormal discharge) - Derm Derm: Warm and dry - Extremities Extremities: No deformity - Neuro Neuro: Alert and oriented X 3 - Psych Psych: Normal mood, Normal affect Results - Vitals Vitals: Vital Signs - 24 hr 01/16/19 01/16/19 01/16/19 02:35 02:46 02:52 Temperature 36.2 C L Heart Rate 73 Respiratory 17 17 17 Rate Blood Pressure 127/79 O2 Saturation 99 01/16/19 01/16/19 01/16/19 03:01 04:02 04:57 Temperature Heart Rate 71 Respiratory 17 17 17 Rate Blood Pressure O2 Saturation 99 Oxygen O2 Source Room air - Labs Labs: Laboratory Tests 01/16/19 01/16/19 01/16/19 02:30 03:45 03:45 WBC 15.4 H RBC 4.22 Hgb 12.5 Hct 39.3 MCV 93.1 MCH 29.6 MCHC 31.8 L RDW 13.1 Plt Count 180 MPV 10.9 H Neut # (Auto) 10.1 H Lymph # (Auto) 4.0 H [place] # (Auto) 0.8 Eos # (Auto) 0.3 Baso # (Auto) 0.1 Absolute Nucleated RBC 0.00 Nucleated RBC % 0.0 Sodium 142 Potassium 4.0 Chloride 105 Carbon Dioxide 29 Anion Gap 8.0 BUN 12 Creatinine 0.6 Estimated GFR (MDRD) 110 Glucose 107 H Calcium 9.2 Total Bilirubin 0.2 AST 15 ALT 14 Alkaline Phosphatase 73 Total Protein 6.8 Albumin 4.3 Globulin 2.5 Albumin/Globulin Ratio 1.7 Lipase 39 Urine Color YELLOW Urine Clarity HAZY Urine pH 6.0 Ur Specific [place] >=1.030 H Urine Protein 30 H Urine Glucose (UA) NEGATIVE Urine Ketones TRACE Urine Occult Blood LARGE H Urine Nitrite NEGATIVE Urine Bilirubin NEGATIVE Urine Urobilinogen 0.2 (NORMAL) Ur Leukocyte Esterase SMALL H Urine RBC 11-25 H Urine WBC 11-25 H Ur Squamous Epith Cells FEW Squamous Urine Bacteria Few Urine Mucus Few Strands Ur Microscopic Review INDICATED Urine Culture Comments INDICATED PD MEDICAL DECISION MAKING - ED course Complexity details: considered differential (UTI, cystitis, pyelonephritis, STD, appendicitis, bladder sling complication) ED course: On examination patient is well-appearing, vital signs are unremarkable. She has a benign abdominal examination with only very mild superpubic tenderness, no flank tenderness. Genital exam is unrevealing, patient has no concern for sexually transmitted action. Her urine shows 11-25 white blood cells and red blood cells with some bacteria present, consistent with a likely urinary tract infection. She continues to have a benign abdomen, unremarkable vital signs, and I do not see signs of an acute abdomen at this time, and bladder sling complication is less likely given her history and exam. Her pain is minimal on reexamination, and she is non-toxic. I discussed that she appears to have a urinary tract infection. I discussed treatment options with antibiotics, she elects to go with Keflex, given that it is more economical with her insurance plan. Labs do show a leukocytosis, but she has no flank tenderness on percussion, no fever or signs of toxicity to suggest pyelonephritis, I think the Keflex is appropriate at this time. First dose was given here in the ED. If she has any worsening symptoms such as increasing or not resolving abdominal pain, vomiting, fever, or other concerning symptoms despite her treatment, she will return for further evaluation and work-up. Patient's questions were answered and she was recommended to follow-up with her primary care provider soon as possible. She was discharged home. Departure - Departure Disposition: 01 Home, Self Care Clinical Impression: UTI (urinary tract infection) Condition: Good Instructions: ED UTI Cystitis Female Follow-Up: Your,PCP [Other] - Within 1 week Prescriptions: Cephalexin [Keflex] 500 mg PO Q6H #28 capsule Comments: You were seen today for pain on urination, you appear to have a urinary tract infection. Please take the antibiotic as prescribed. If you have any worsening, Increasing abdominal or flank pain, or if your symptoms are not improving with the antibiotic please return to the emergency department. Please follow-up with your primary care provider as soon as possible.
[2019-01-16 02:51] LABS: BILIRUBIN,URINE NEGATIVE (NEGATIVE); GLUCOSE, URINE (UA) NEGATIVE (NEGATIVE); KETONES,URINE (UA) TRACE mg/dL (NEGATIVE); LEUKOCYTE ESTERASE, URINE SMALL (NEGATIVE); NITRITE,URINE NEGATIVE (NEGATIVE); OCCULT BLOOD,URINE LARGE (NEGATIVE); PROTEIN,URINE 30 mg/dL (NEGATIVE); UROBILINOGEN,URINE 0.2 (NORMAL) E.U./dL (NORMAL)
[2019-01-16 02:53] LABS: CLARITY,URINE HAZY (CLEAR)
[2019-01-16 02:56] LABS: BACTERIA,URINE Few /HPF (None Seen); MUCUS,URINE Few Strands; SQUAMOUS EPITHELIAL CELL,UR FEW Squamous (<= Few)
[2019-01-16 03:51] LABS: BASOPHILS # (AUTO) 0.1 10^3/uL (0.0-0.1); BASOPHILS % (AUTO) 0.4 %; EOSINOPHILS # (AUTO) 0.3 10^3/uL (0.0-0.7); EOSINOPHILS % (AUTO) 2.1 %; HGB - HEMOGLOBIN 12.5 g/dL (12.0-16.0); LYMPHOCYTES % (AUTO) 25.9 %; MEAN CORPUSCULAR HEMOGLOBIN 29.6 pg (27.0-31.0); MEAN CORPUSCULAR HGB CONC 31.8 g/dL (32.0-36.0); MEAN CORPUSCULAR VOLUME 93.1 fL (81.0-99.0); MEAN PLATELET VOLUME 10.9 fL (7.9-10.8); MONOCYTES # (AUTO) 0.8 10^3/uL (0.0-1.0); MONOCYTES % (AUTO) 5.3 %; NEUTROPHILS # (AUTO) 10.1 10^3/uL (1.5-6.6); NEUTROPHILS % (AUTO) 65.8 %; PLT - PLATELET COUNT 180 10^3/uL (130-450); RED BLOOD COUNT 4.22 10^6/uL (4.20-5.40); RED CELL DISTRIBUTION WIDTH 13.1 % (12.0-15.0); WHITE BLOOD COUNT 15.4 x10^3/uL (4.8-10.8)
[2019-01-16 04:04] LABS: ALBUMIN 4.3 g/dL (3.2-5.5); ALBUMIN/GLOBULIN RATIO 1.7 (1.0-2.2); BILIRUBIN,TOTAL 0.2 mg/dL (0.2-1.0); CALCIUM 9.2 mg/dL (8.5-10.3); CREATININE 0.6 mg/dL (0.4-1.0); TOTAL PROTEIN 6.8 g/dL (6.7-8.2)
[2019-01-16] MEDS ORDERED: cephALEXin 250 MG CAPSULE PO STA (04:42)
[2019-01-16 05:41] VITALS: BP 121/73
== END 2019-01-16 05:25 | disposition home or self-care (01) ==
LOC: EDUNIT# → ED 02:18
DX: N39.0 Urinary tract infection, site not specified (principal)
CPT/HCPCS: 36415; 80053; 81001; 83690; 85025; 87086; 87181; 99283; A9270; 81003

== ENCOUNTER 2019-05-30 12:57 | Emergency (ER) | payer MEDICAID ==
[2019-05-30 13:12] VITALS: BP 130/88
[2019-05-30] MEDS ORDERED: CYCLOBENZAPRINE 10 MG TABLET PO STA (13:21)
--- NOTE | 2019-05-30 13:24 | ED Physician Documentation ---
History of Present Illness - Stated complaint Stated Complaint: RT SIDE PX - Chief complaint Chief Complaint: Ext Problem - History obtained from History obtained from: Patient - History of Present Illness Timing: Last night (She developed right lower abdominal pain while walking last night. Is been persistent. Hurts to walk and bear weight but also hurts at rest. No vomiting or changes in bowel movements. No fevers. She has a history of extensive abdominal surgeries.) Review of Systems Constitutional: reports: Reviewed and negative Cardiac: reports: Reviewed and negative Respiratory: reports: Reviewed and negative PD PAST MEDICAL HISTORY - Past Medical History Cardiovascular: None Respiratory: None Neuro: None Endocrine/Autoimmune: None GI: Hepatitis, Other PATTERN KEEPER: None : Incontinence, Frequency HEENT: Other Psych: Depression Musculoskeletal: None Derm: None - Past Surgical History Past Surgical History: Yes General: Cholecystectomy Ortho: Other /PATTERN KEEPER: LEEP (Cervical surgery) Neuro: Other - Present Medications Home Medications: Ambulatory Orders Medication Instructions Recorded Confirmed Amoxicillin 500 mg PO TID #21 capsule 03/05/18 Cetirizine [ZyrTEC] 10 mg PO DAILY #15 tablet 03/05/18 Oxycodone HCl/Acetaminophen 1 each PO Q6H PRN #10 tablet 03/05/18 [Percocet 5-325 mg Tablet] dexAMETHasone [Decadron] 4 mg PO DAILY #5 tablet 03/05/18 Hydrocortisone Acetate [Anucort-Hc] 25 mg RC BID #10 supp.rect 07/23/18 Psyllium Husk [Metamucil] 0.4 gm PO DAILY #30 capsule 07/23/18 Hydrocodone/Acetaminophen [[place] 1 each PO Q6H PRN #12 tablet 11/05/18 5-325 Tablet] Naproxen 500 mg PO BID #20 tablet 11/05/18 Cephalexin [Keflex] 500 mg PO Q6H #28 capsule 01/16/19 Hydrocodone/Acetaminophen 1 - 2 each PO Q6H PRN #14 tablet 05/30/19 [Hydrocodon-Acetaminophen 5-325] - Allergies Allergies/Adverse Reactions: Allergies Allergy/AdvReac Type Severity Reaction Status Date / Time tramadol AdvReac Severe Itching Verified 05/30/19 13:12 Latex, Natural Rubber AdvReac Intermediate Itching Verified 05/30/19 13:12 - Social History Does the pt smoke?: No Smoking Status: Never smoker Does the pt drink ETOH?: No Does the pt have substance abuse?: Yes - Immunizations Immunizations are current?: Yes - POLST Patient has POLST: No PD ED PE NORMAL - Vitals Vital signs reviewed: Yes - General General: Alert and oriented X 3, No acute distress - Abdomen Abdomen: Other (Mild right lower quadrant tenderness. No tenderness of the right hip. No pain with internal or external rotation of the right hip. Mild tenderness of the right low back. No rash.) - Neuro Neuro: Alert and oriented X 3, Normal speech Results - Vitals Vitals: Vital Signs - 24 hr 05/30/19 13:07 Temperature 36 C L Heart Rate 78 Respiratory 18 Rate Blood Pressure 130/88 H O2 Saturation 97 Oxygen O2 Source Room air - Rads (name of study) CT KUB Radiology: EMP read contemporaneously (Apparent right ovarian cyst measuring 3.3 x 3.1 cm) PD MEDICAL DECISION MAKING - ED course ED course: Pain is atypical for actual hip or musculoskeletal pain and another cause was found in the ovarian cyst which actually is more typical for the location of the pain. Departure - Departure Disposition: 01 Home, Self Care Clinical Impression: Right ovarian cyst Condition: Good Record reviewed to determine appropriate education?: Yes Instructions: ED Cyst Ovarian Prescriptions: Hydrocodone/Acetaminophen [Hydrocodon-Acetaminophen 5-325] 1 - 2 each PO Q6H PRN #14 tablet PRN Reason: pain Comments: Your CAT scan today shows a 3.3 x 3.1 cm right ovarian cyst. This should go away on its own but I recommend you follow-up with your plaster mixer and they may want to perform an ultrasound in 6 weeks to make sure it has resolved. Return for new or worsening symptoms. Your blood pressure was elevated today on check into the emergency department. This does not mean that you have hypertension, it is a common phenomenon to come to the emergency department and have elevated blood pressure. I recommend that you see your primary care physician within the week to have it rechecked when you are feeling better. Do not drink or drive while taking narcotic pain medication. Note that many narcotic pain relievers also contain Tylenol/acetaminophen. Please ensure that your total dose of acetaminophen from all sources does not exceed 3 g (3000 mg) per day. You may get constipated while on this medication. Take a stool softener such as Colace twice a day while you are on it. Also add an gukm-mee-wtislgh laxative such as senna or MiraLAX on any day that you do not have a bowel movement. If you received a narcotic pain medication or sedative while in the emergency department, do not drive for the next 24 hours.
--- NOTE | 2019-05-30 14:01 | CT Report ---
Reason: RLQ pain Procedure Date: 05/30/2019 Accession Number: [id number] / [id number] Procedure: CT - Abdomen/Pelvis WO CPT Code: Final Report FULL RESULT: EXAM: CT ABDOMEN AND PELVIS (CT KUB) EXAM DATE: 05/30/2019 01:47 PM. CLINICAL HISTORY: RLQ pain. COMPARISONS: ABDOMEN/PELVIS W/ 07/23/2018 12:43 AM. TECHNIQUE: Routine axial helical CT imaging was performed through the abdomen and pelvis without IV contrast. Reconstructions: Coronal and sagittal. In accordance with CT protocol optimization, one or more of the following dose reduction techniques were utilized for this exam: automated exposure control, adjustment of mA and/or KV based on patient size, or use of iterative reconstructive technique. FINDINGS: Lung Bases: Unremarkable. Right Kidney/Ureter: No stones, hydronephrosis, or hydroureter. No perinephric fat stranding. Left Kidney/Ureter: No stones, hydronephrosis, or hydroureter. No perinephric fat stranding. Other Solid Organs: Noncontrast images of the solid organs are grossly unremarkable. Gallbladder/Bile Ducts: Status post cholecystectomy. Peritoneal Cavity: No free fluid, free air or gordy adenopathy. Bowel is grossly unremarkable. Normal appendix and right lower quadrant. Diffuse colonic diverticulosis and no diverticulitis. Pelvic Organs: No bladder stones or wall thickening. A hypodense well-defined oval-shaped lesion in the right adnexa measuring 3.3 x 3.1 cm, most consistent with a physiological cyst in this age group/reproductive age. Noncontrast images of rest of the visualized pelvic organs are unremarkable. Vasculature: Unremarkable. Other: None. IMPRESSION: No urinary tract stones or obstruction. A hypodense well-defined oval-shaped lesion in right adnexa measuring 3.3 x 3.1 cm, most consistent with a physiological cyst in this age group/reproductive age. A follow-up pelvic ultrasound is recommended in 6 weeks for interval assessment. RADIA
[2019-05-30] MEDS ORDERED: HYDROcod/ACETAM 5/325 MG TABLET PO STA (14:09)
[2019-05-30 14:29] LABS: MUDS CUTOFF CONCENTRATIONS CUTOFF CONC BELOW:
[2019-05-30 14:34] LABS: BILIRUBIN,URINE NEGATIVE (NEGATIVE); GLUCOSE, URINE (UA) NEGATIVE (NEGATIVE); KETONES,URINE (UA) NEGATIVE (NEGATIVE); LEUKOCYTE ESTERASE, URINE NEGATIVE (NEGATIVE); NITRITE,URINE NEGATIVE (NEGATIVE); OCCULT BLOOD,URINE NEGATIVE (NEGATIVE); PROTEIN,URINE NEGATIVE (NEGATIVE); UROBILINOGEN,URINE 0.2 (NORMAL) E.U./dL (NORMAL)
[2019-05-30 14:36] LABS: CLARITY,URINE CLEAR (CLEAR)
[2019-05-30 14:44] LABS: AMPHETAMINE SCREEN,URINE NEGATIVE (NEGATIVE); BENZODIAZEPINES SCREEN, URINE NEGATIVE (NEGATIVE); COCAINE SCREEN URINE NEGATIVE (NEGATIVE); METHADONE SCREEN, URINE NEGATIVE (NEGATIVE); METHAMPHETAMINES SCREEN, URINE NEGATIVE (NEGATIVE); OPIATE SCREEN, URINE NEGATIVE (NEGATIVE); OXYCODONE SCREEN, URINE NEGATIVE (NEGATIVE); PROPOXYPHENE SCREEN, URINE NEGATIVE (NEGATIVE); TRICYCLIC ANTIDEPRESSANT,URINE NEGATIVE (NEGATIVE)
== END 2019-05-30 14:56 | disposition home or self-care (01) ==
LOC: ED 12:57
DX: N83.201 Unspecified ovarian cyst, right side (principal); R03.0 Elevated blood-pressure reading, without diagnosis of hypertension
CPT/HCPCS: 74176; 80306; 81003; 99283; 99284; A9270; 81001; 87086

== ENCOUNTER 2019-06-17 14:48 | Outpatient (CLI) | payer MEDICAID ==
--- NOTE | 2019-06-19 06:03 | Ultrasound Report ---
Reason: RIGHT OVAIAN CYST Procedure Date: 06/17/2019 Accession Number: [id number] / [id number] Procedure: US - Pelvic w/Transvaginal CPT Code: Final Report FULL RESULT: EXAM: PELVIC ULTRASOUND EXAM DATE: 06/17/2019 03:43 PM. CLINICAL HISTORY: RIGHT OVAIAN CYST. COMPARISON: PELVIC W/TRANSVAGINAL 07/01/2015 3:09 PM ABDOMEN/PELVIS W/O 05/30/2019 1:42 PM. TECHNIQUE: Realtime transabdominal pelvic scan performed to identify the uterus and adnexa and as an overview of other pelvic structures, followed by transvaginal scan to provide greater detail of the uterus and adnexa, with static image documentation. FINDINGS: Uterus: Hysterectomy Right Ovary: 3.3 x 2.2 x 2.8 cm, volume 10.7 cc. Anechoic cyst with irregular margin measures 1.6 x 1.9 x 2.6 cm, suspect involuting cyst. Normal echotexture and blood flow. Left Ovary: 1.8 x 1.1 x 1.6 cm, volume 1.6 cc. Normal echotexture and blood flow. Free Fluid: None. Other: None. IMPRESSION: 1. Hysterectomy. 2. Suspect involuting right ovarian cyst RADIA
== END 2019-06-17 14:49 | disposition home or self-care (01) ==
LOC: DI 14:48
PROVIDERS: ATTEND Obstetrics & Gynecology
DX: N83.201 Unspecified ovarian cyst, right side (principal); Z90.710 Acquired absence of both cervix and uterus
CPT/HCPCS: 76830; 76856

== ENCOUNTER 2019-09-13 11:23 | Emergency (ER) | payer MEDICAID ==
[2019-09-13 12:01] LABS: BASOPHILS # (AUTO) 0.1 10^3/uL (0.0-0.1); BASOPHILS % (AUTO) 0.6 %; EOSINOPHILS # (AUTO) 0.2 10^3/uL (0.0-0.7); EOSINOPHILS % (AUTO) 2.7 %; HGB - HEMOGLOBIN 14.4 g/dL (12.0-16.0); LYMPHOCYTES # (AUTO) 2.8 10^3/uL (1.5-3.5); LYMPHOCYTES % (AUTO) 30.5 %; MEAN CORPUSCULAR HEMOGLOBIN 29.8 pg (27.0-31.0); MEAN CORPUSCULAR HGB CONC 32.1 g/dL (32.0-36.0); MEAN PLATELET VOLUME 10.6 fL (7.9-10.8); MONOCYTES # (AUTO) 0.6 10^3/uL (0.0-1.0); MONOCYTES % (AUTO) 6.4 %; NEUTROPHILS # (AUTO) 5.4 10^3/uL (1.5-6.6); NEUTROPHILS % (AUTO) 59.4 %; PLT - PLATELET COUNT 227 10^3/uL (130-450); RED BLOOD COUNT 4.83 10^6/uL (4.20-5.40)
[2019-09-13 12:20] LABS: ALBUMIN 4.2 g/dL (3.2-5.5); ALBUMIN/GLOBULIN RATIO 1.4 (1.0-2.2); BILIRUBIN,TOTAL 0.6 mg/dL (0.2-1.0); CALCIUM 9.6 mg/dL (8.5-10.3); CREATININE 0.7 mg/dL (0.4-1.0); TOTAL PROTEIN 7.3 g/dL (6.7-8.2)
[2019-09-13 12:46] LABS: BILIRUBIN,URINE NEGATIVE (NEGATIVE); GLUCOSE, URINE (UA) NEGATIVE (NEGATIVE); KETONES,URINE (UA) NEGATIVE (NEGATIVE); LEUKOCYTE ESTERASE, URINE NEGATIVE (NEGATIVE); NITRITE,URINE NEGATIVE (NEGATIVE); OCCULT BLOOD,URINE NEGATIVE (NEGATIVE); PH,URINE 5.5 PH (5.0-7.5); PROTEIN,URINE NEGATIVE (NEGATIVE); UROBILINOGEN,URINE 0.2 (NORMAL) E.U./dL (NORMAL)
[2019-09-13 12:58] LABS: CLARITY,URINE CLEAR (CLEAR); HCG UR QUAL NEGATIVE
--- NOTE | 2019-09-13 13:05 | ED Physician Documentation ---
PD HPI GI BLEED - Stated complaint Stated Complaint: FEMALE - Chief complaint Chief Complaint: General - History obtained from History obtained from: Patient - History of Present Illness Timing - onset: How many days ago (few) Timing - duration: Days (few) Timing - details: Intermittant (noted red blood with pain upon BMs for few days. Today she thought she had blood vaginally as well. Has had hemorrhoids in the past, but not lasted few days.) Associated symptoms: BRBPR, Constipation (mild). 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 : Incontinence, Frequency HEENT: Other Psych: Depression Musculoskeletal: None Derm: None - Past Surgical History Past Surgical History: Yes General: Cholecystectomy Ortho: 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: LEEP (Cervical surgery) Neuro: Other - Present Medications Home Medications: Ambulatory Orders Medication Instructions Recorded Confirmed Amoxicillin 500 mg PO TID #21 capsule 03/05/18 Cetirizine [ZyrTEC] 10 mg PO DAILY #15 tablet 03/05/18 Oxycodone HCl/Acetaminophen 1 each PO Q6H PRN #10 tablet 03/05/18 [Percocet 5-325 mg Tablet] dexAMETHasone [Decadron] 4 mg PO DAILY #5 tablet 03/05/18 Hydrocortisone Acetate [Anucort-Hc] 25 mg RC BID #10 supp.rect 07/23/18 Psyllium Husk [Metamucil] 0.4 gm PO DAILY #30 capsule 07/23/18 Hydrocodone/Acetaminophen [[place] 1 each PO Q6H PRN #12 tablet 11/05/18 5-325 Tablet] Naproxen 500 mg PO BID #20 tablet 11/05/18 Cephalexin [Keflex] 500 mg PO Q6H #28 capsule 01/16/19 Hydrocodone/Acetaminophen 1 - 2 each PO Q6H PRN #14 tablet 05/30/19 [Hydrocodon-Acetaminophen 5-325] Docusate Sodium 100 mg PO DAILY #15 capsule 09/13/19 Hydrocortisone Acetate [Anucort-Hc] 25 mg RC BID #10 supp.rect 09/13/19 - Allergies Allergies/Adverse Reactions: Allergies Allergy/AdvReac Type Severity Reaction Status Date / Time tramadol AdvReac Severe Itching Verified 09/13/19 11:34 Latex, Natural Rubber AdvReac Intermediate Itching Verified 09/13/19 11:34 - Social History Does the pt smoke?: No Smoking Status: Never smoker Does the pt drink ETOH?: No Does the pt have substance abuse?: Yes - Immunizations Immunizations are current?: Yes - POLST Patient has POLST: No PD ED PE NORMAL - Vitals Vital signs reviewed: Yes - General General: Alert and oriented X 3, No acute distress (but somewhat anxious), Well developed/nourished - Cardiac Cardiac: RRR, No murmur - Respiratory Respiratory: Clear bilaterally - Abdomen Abdomen: Normal bowel sounds, Soft, Non tender, Non distended - Female 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 Mild whitish discharge without redness. Samples obtained. ) - Rectal Rectal: Other (small nonthrombosed external hemorrhoid. Digital exam deferred due to pt anxiety. ) - Back Back: No CVA TTP - Derm Derm: Normal color, Warm and dry Results - Vitals Vitals: Oxygen O2 Source Room air - Labs Labs: Laboratory Tests 09/13/19 09/13/19 09/13/19 11:58 11:58 12:32 WBC 9.0 RBC 4.83 Hgb 14.4 Hct 44.9 MCV 93.0 MCH 29.8 MCHC 32.1 RDW 13.0 Plt Count 227 MPV 10.6 Neut # (Auto) 5.4 Lymph # (Auto) 2.8 [place] # (Auto) 0.6 Eos # (Auto) 0.2 Baso # (Auto) 0.1 Absolute Nucleated RBC 0.00 Nucleated RBC % 0.0 Sodium 138 Potassium 3.8 Chloride 103 Carbon Dioxide 27 Anion Gap 8.0 BUN 9 Creatinine 0.7 Estimated GFR (MDRD) 92 Glucose 132 H Calcium 9.6 Total Bilirubin 0.6 AST 17 ALT 14 Alkaline Phosphatase 69 Total Protein 7.3 Albumin 4.2 Globulin 3.1 Albumin/Globulin Ratio 1.4 Lipase 31 Urine Color YELLOW Urine Clarity CLEAR Urine pH 5.5 Ur Specific [place] 1.015 Urine Protein NEGATIVE Urine Glucose (UA) NEGATIVE Urine Ketones NEGATIVE Urine Occult Blood NEGATIVE Urine Nitrite NEGATIVE Urine Bilirubin NEGATIVE Urine Urobilinogen 0.2 (NORMAL) Ur Leukocyte Esterase NEGATIVE Ur Microscopic Review NOT INDICATED Urine Culture Comments NOT INDICATED Urine HCG, Qual NEGATIVE C. glabrata (PCR) C. krusei (PCR) Yana species DNA Chlam trachomat DNA PCR N.gonorrhoeae DNA (PCR) T. vaginalis (PCR) Bact Vaginosis (PCR) 09/13/19 09/13/19 13:36 13:36 WBC RBC Hgb Hct MCV MCH MCHC RDW Plt Count MPV Neut # (Auto) Lymph # (Auto) [place] # (Auto) Eos # (Auto) Baso # (Auto) Absolute Nucleated RBC Nucleated RBC % Sodium Potassium Chloride Carbon Dioxide Anion Gap BUN Creatinine Estimated GFR (MDRD) Glucose Calcium Total Bilirubin AST ALT Alkaline Phosphatase Total Protein Albumin Globulin Albumin/Globulin Ratio Lipase Urine Color Urine Clarity Urine pH Ur Specific [place] Urine Protein Urine Glucose (UA) Urine Ketones Urine Occult Blood Urine Nitrite Urine Bilirubin Urine Urobilinogen Ur Leukocyte Esterase Ur Microscopic Review Urine Culture Comments Urine HCG, Qual C. glabrata (PCR) NEGATIVE C. krusei (PCR) NEGATIVE Yana species DNA NEGATIVE Chlam trachomat DNA PCR NEGATIVE N.gonorrhoeae DNA (PCR) NEGATIVE T. vaginalis (PCR) NEGATIVE NEGATIVE Bact Vaginosis (PCR) NEGATIVE PD MEDICAL DECISION MAKING - ED course Complexity details: considered differential, d/w patient Departure - Departure Disposition: 01 Home, Self Care Clinical Impression: Rectal bleeding Hemorrhoid Qualifiers: Hemorrhoid type: unspecified Qualified Code(s): K64.9 - Unspecified hemorrhoids Condition: Stable Record reviewed to determine appropriate education?: Yes Instructions: ED Hemorrhoids Follow-Up: Monica Vidales ARNP [Primary Care Provider] - Prescriptions: Docusate Sodium 100 mg PO DAILY #15 capsule Hydrocortisone Acetate [Anucort-Hc] 25 mg RC BID #10 supp.rect Comments: Use a mild daily stool softener to make sure the stool comes out easy and soft. Hemorrhoid suppository twice daily for couple of days and then once daily after that until this seems resolved completely. Recheck if not improved well over the next several days. I do not see any signs of bleeding source vaginally. There was a mild bit of discharge we did do a culture on it. We will call you if there is any signs of infection based on those results. This will be in a day or 2. Discharge Date/Time: 09/13/19 13:44
[2019-09-13 13:11] VITALS: BP 143/80
[2019-09-13 16:12] LABS: CANDIDA GROUP DNA NEGATIVE (NEGATIVE); CANDIDA KRUSEI DNA NEGATIVE (NEGATIVE); TRICHOMONAS VAGINALIS DNA NEGATIVE (NEGATIVE)
[2019-09-13 18:50] LABS: TRICHOMONAS VAGINALIS DNA NEGATIVE (NEGATIVE)
== END 2019-09-13 13:44 | disposition home or self-care (01) ==
LOC: ED 11:23
DX: K62.5 Hemorrhage of anus and rectum (principal); K64.4 Residual hemorrhoidal skin tags; N89.8 Other specified noninflammatory disorders of vagina
CPT/HCPCS: 36415; 80053; 81001; 81003; 81025; 83690; 85025; 87086; 87491; 87591; 87661; 87801; 99283; 99284

== ENCOUNTER 2019-09-20 18:07 | Emergency (ER) | payer MEDICAID ==
[2019-09-20 18:21] VITALS: BP 127/81
[2019-09-20 18:38] LABS: BILIRUBIN,URINE NEGATIVE (NEGATIVE); GLUCOSE, URINE (UA) NEGATIVE (NEGATIVE); KETONES,URINE (UA) TRACE mg/dL (NEGATIVE); LEUKOCYTE ESTERASE, URINE LARGE (NEGATIVE); NITRITE,URINE POSITIVE (NEGATIVE); OCCULT BLOOD,URINE LARGE (NEGATIVE); PROTEIN,URINE 30 mg/dL (NEGATIVE); UROBILINOGEN,URINE 0.2 (NORMAL) E.U./dL (NORMAL)
[2019-09-20 18:41] LABS: CLARITY,URINE CLOUDY (CLEAR); HCG UR QUAL NEGATIVE
[2019-09-20 18:48] LABS: BACTERIA,URINE Few /HPF (None Seen); MUCUS,URINE Moderate Strands; SQUAMOUS EPITHELIAL CELL,UR FEW Squamous (<= Few); WBC CLUMPS,URINE PRESENT
[2019-09-20] MEDS ORDERED: NITROFURANTOIN MACRO 100 MG CAPSULE PO STA (19:01)
--- NOTE | 2019-09-20 19:03 | ED Physician Documentation ---
History of Present Illness - Stated complaint Stated Complaint: FEM - Chief complaint Chief Complaint: General - History obtained from History obtained from: Patient - History of Present Illness Timing: How many days ago (2) Pain level max: 4 Pain level now: 3 - Additonal information Additional information: 43-year-old female presents to the emergency department with dysuria and urinary frequency. Feels similar to past UTIs. Also states that she has a yellow vaginal discharge. This has been ongoing for the past several days. No fever. No low back pain. No vomiting. Worse with urination, nothing makes it better. She is . No changes in sexual partners. 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 : Incontinence, Frequency HEENT: Other Psych: Depression Musculoskeletal: None Derm: None - Past Surgical History Past Surgical History: Yes General: Cholecystectomy Ortho: Other /SIGN 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: LEEP (Cervical surgery) Neuro: Other - Present Medications Home Medications: Ambulatory Orders Medication Instructions Recorded Confirmed Nitrofurantoin Monohyd/M-Cryst 100 mg PO BID #10 capsule 09/20/19 [Macrobid 100 mg Capsule] - Allergies Allergies/Adverse Reactions: Allergies Allergy/AdvReac Type Severity Reaction Status Date / Time tramadol AdvReac Severe Itching Verified 09/20/19 18:20 Latex, Natural Rubber AdvReac Intermediate Itching Verified 09/20/19 18:20 - Social History Does the pt smoke?: No Smoking Status: Never smoker Does the pt drink ETOH?: No Does the pt have substance abuse?: Yes Substance Use and Type: Marijuana - Immunizations Immunizations are current?: No Immunizations: TDAP >10years/unknown - POLST Patient has POLST: No PD ED PE NORMAL - Vitals Vital signs reviewed: Yes - General General: Alert and oriented X 3, No acute distress, Well developed/nourished - HEENT HEENT: Moist mucous membranes - Neck Neck: Supple, no meningeal sign - Cardiac Cardiac: RRR, Strong equal pulses - Respiratory Respiratory: No respiratory distress, Clear bilaterally - Abdomen Abdomen: Soft, Non tender, Non distended - Back Back: No CVA TTP - Derm Derm: Warm and dry - Neuro Neuro: Alert and oriented X 3 - Psych Psych: Normal mood, Normal affect Results - Vitals Vitals: Vital Signs - 24 hr 09/20/19 18:18 Temperature 36.7 C Heart Rate 83 Respiratory 18 Rate Blood Pressure 127/81 H O2 Saturation 99 Oxygen O2 Source Room air - Labs Labs: Laboratory Tests 09/20/19 09/20/19 18:25 18:55 Urine Color YELLOW Urine Clarity CLOUDY Urine pH 6.0 Ur Specific [place] 1.025 Urine Protein 30 H Urine Glucose (UA) NEGATIVE Urine Ketones TRACE Urine Occult Blood LARGE H Urine Nitrite POSITIVE H Urine Bilirubin NEGATIVE Urine Urobilinogen 0.2 (NORMAL) Ur Leukocyte Esterase LARGE H Urine RBC 6-10 H Urine WBC >25 H Urine WBC Clumps PRESENT Ur Squamous Epith Cells FEW Squamous Urine Bacteria Few Urine Mucus Moderate Strands Ur Microscopic Review INDICATED Urine Culture Comments INDICATED Urine HCG, Qual NEGATIVE C. glabrata (PCR) NEGATIVE C. krusei (PCR) NEGATIVE Yana species DNA NEGATIVE T. vaginalis (PCR) NEGATIVE Bact Vaginosis (PCR) NEGATIVE PD MEDICAL DECISION MAKING - ED course Complexity details: reviewed results, considered differential, d/w patient ED course: Patient with a UTI. We will place on antibiotics for this. She is well- appearing, nontoxic. Afebrile. No pyelonephritis. Patient counseled regarding signs and symptoms for which I believe and urgent re-evaluation would be necessary. Patient with good understanding of and agreement to plan and is comfortable going home at this time This document was made in part using voice recognition software. While efforts are made to proofread this document, sound alike and grammatical errors may occur. Departure - Departure Disposition: 01 Home, Self Care Clinical Impression: UTI (urinary tract infection) Qualifiers: Urinary tract infection type: acute cystitis Hematuria presence: without hematuria Qualified Code(s): N30.00 - Acute cystitis without hematuria Condition: Good Instructions: ED UTI Cystitis Female Follow-Up: Monica Vidales ARNP [Primary Care Provider] - As Needed Prescriptions: Nitrofurantoin Monohyd/M-Cryst [Macrobid 100 mg Capsule] 100 mg PO BID #10 capsule Comments: Take all antibiotics until gone. Return if you worsen. If your swabs that were sent to the lab are positive, we will call you to let you know and find out where you would like prescriptions sent to. Discharge Date/Time: 09/20/19 19:19
[2019-09-20 22:01] LABS: CANDIDA GROUP DNA NEGATIVE (NEGATIVE); CANDIDA KRUSEI DNA NEGATIVE (NEGATIVE); TRICHOMONAS VAGINALIS DNA NEGATIVE (NEGATIVE)
[2019-09-20 22:59] LABS: TRICHOMONAS VAGINALIS DNA NEGATIVE (NEGATIVE)
== END 2019-09-20 19:19 | disposition home or self-care (01) ==
LOC: ED 18:07
DX: N30.00 Acute cystitis without hematuria (principal)
CPT/HCPCS: 81001; 81025; 87086; 87181; 87481; 87491; 87591; 87661; 87801; 99283; 99284; A9270; 81003

== ENCOUNTER 2019-12-21 09:52 | Emergency (ER) | payer MEDICAID ==
--- NOTE | 2019-12-21 10:43 | XRAY Report ---
PROCEDURE: Wrist 4 View LT INDICATIONS: fall, wrist pain TECHNIQUE: 4 views of the wrist were acquired. COMPARISON: None FINDINGS: Bones: No fractures or dislocations. No suspicious bony lesions. Scaphoid view: Negative Soft tissues: No suspicious soft tissue calcifications. IMPRESSION: No acute fracture. No osseous lesion. If symptoms and/or clinical suspicion for pathology continue, f urther assessment with repeat plain films, or advanced imaging (e.g., CT, MRI, or bone scan) is recom mended for further assessment. Reviewed by: Khushi Guzman MD on 12/21/2019 10:42 AM PDT Approved by: Khushi Guzman MD on 12/21/2019 10:42 AM PDT Station ID: [id number]
--- NOTE | 2019-12-21 10:45 | XRAY Report ---
PROCEDURE: Shoulder 3 View LT INDICATIONS: fall, shoulder pain TECHNIQUE: 3 views of the shoulder were acquired. COMPARISON: Left shoulder radiographs dated 11/05/2018 FINDINGS: Bones: There is flattening of the superolateral aspect of the humeral head that is suspicious for a H ill-Sachs lesion, not seen on the prior radiographs from 11/05/2018. The glenohumeral joint is normall y aligned. No suspicious bony lesions. Visualized ribs appear intact. Soft tissues: No suspicious soft tissue calcifications. IMPRESSION: Flattening of the superolateral humeral head is suspicious for a new Hill-Sachs lesion. The glenohumeral joint is normally aligned on this study. MRI may be obtained for further evaluation if clinically indicated. Reviewed by: Parminder Bridges MD on 12/21/2019 10:44 AM PDT Approved by: Parminder Bridges MD on 12/21/2019 10:44 AM PDT Station ID: [id number]
--- NOTE | 2019-12-21 11:06 | ED Physician Documentation ---
History of Present Illness - Stated complaint Stated Complaint: L HAND/SHOULDER INJ - Chief complaint Chief Complaint: Ext Problem - History obtained from History obtained from: Patient - History of Present Illness Timing: Today Pain level max: 0 Pain level now: 0 - Additonal information Additional information: Patient states that she fell 2 days ago, still having left hand/wrist pain and left upper arm pain. Worse with movement and better with rest. No head injury. No neck or back pain. 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 : Incontinence, Frequency HEENT: Other Psych: Depression Musculoskeletal: None Derm: None - Past Surgical History Past Surgical History: Yes General: Cholecystectomy Ortho: Other /PRODUCTION SOUND MIXER: LEEP (Cervical surgery) Neuro: Other - Present Medications Home Medications: Ambulatory Orders Medication Instructions Recorded Confirmed Nitrofurantoin Monohyd/M-Cryst 100 mg PO BID #10 capsule 09/20/19 [Macrobid 100 mg Capsule] - Allergies Allergies/Adverse Reactions: Allergies Allergy/AdvReac Type Severity Reaction Status Date / Time tramadol AdvReac Severe Itching Verified 12/21/19 10:41 Latex, Natural Rubber AdvReac Intermediate Itching Verified 12/21/19 10:41 - Social History Does the pt smoke?: No Smoking Status: Never smoker Does the pt drink ETOH?: No Does the pt have substance abuse?: Yes - Immunizations Immunizations are current?: No Immunizations: TDAP >10years/unknown - POLST Patient has POLST: No PD ED PE NORMAL - Vitals Vital signs reviewed: Yes - General General: Alert and oriented X 3, No acute distress - HEENT HEENT: Moist mucous membranes - Neck Neck: Supple, no meningeal sign - Cardiac Cardiac: RRR - Respiratory Respiratory: No respiratory distress, Clear bilaterally - Abdomen Abdomen: Soft, Non tender, Non distended - Derm Derm: Warm and dry - Extremities Extremities: Other - Neuro Neuro: Alert and oriented X 3 - Psych Psych: Normal mood, Normal affect - Free text exam Free text exam: No tenderness over the glenohumeral joint, but there is some mild discomfort with range of motion. Neurovascular intact. Also tender to palpation over the fifth metacarpal and mild tenderness over the ulnar styloid. No scaphoid tenderness. Otherwise normal nation of the hand and wrist. Results - Vitals Vitals: Vital Signs - 24 hr 12/21/19 12/21/19 10:03 12:15 Temperature 37.1 C 36.8 C Heart Rate 88 84 Respiratory 18 18 Rate Blood Pressure 137/86 H 145/76 H O2 Saturation 98 99 Oxygen O2 Source Room air - Rads (name of study) Left shoulder x-ray Radiology: Prelim report reviewed, EMP read contemporaneously, See rad report (Small Hill-Sachs deformity) Left wrist x-ray Radiology: Prelim report reviewed, EMP read contemporaneously, See rad report (Normal) PD MEDICAL DECISION MAKING - ED course Complexity details: reviewed results, re-evaluated patient, considered differential, d/w patient ED course: No acute abnormality is on x-rays. Using her arm well. likely that the Hill- Sachs deformity is old. We will continue supportive care and have her follow-up with her doctor for further care. Patient counseled regarding signs and symptoms for which I believe and urgent re-evaluation would be necessary. Patient with good understanding of and agreement to plan and is comfortable going home at this time This document was made in part using voice recognition software. While efforts are made to proofread this document, sound alike and grammatical errors may occur. Departure - Departure Disposition: 01 Home, Self Care Clinical Impression: Hand sprain Qualifiers: Encounter type: initial encounter Laterality: left Qualified Code(s): S63.92XA - Sprain of unspecified part of left wrist and hand, initial encounter Left shoulder strain Qualifiers: Encounter type: initial encounter Qualified Code(s): S46.912A - Strain of unspecified muscle, fascia and tendon at shoulder and upper arm level, left arm, initial encounter Condition: Good Instructions: ED Sprain Hand Follow-Up: Monica Vidales ARNP [Primary Care Provider] - Within 1 week Comments: There are no acute fractures on your x-rays today. Follow-up with your doctor in 1 week for further care. You may have a Hill-Sachs lesion on your shoulder, most of the time these heal without any intervention, however for confirmation, your doctor may want to order an MRI. Discharge Date/Time: 12/21/19 11:45
[2019-12-21 12:16] VITALS: BP 145/76
== END 2019-12-21 11:45 | disposition home or self-care (01) ==
LOC: ED 09:52
DX: S63.92XA Sprain of unspecified part of left wrist and hand, initial encounter (principal); S46.912A Strain of unspecified muscle, fascia and tendon at shoulder and upper arm level, left arm, initial encounter; W01.0XXA Fall on same level from slipping, tripping and stumbling without subsequent striking against object, initial encounter; Y93.01 Activity, walking, marching and hiking
CPT/HCPCS: 99284

== ENCOUNTER 2020-02-19 09:44 | Emergency (ER) | payer MEDICAID ==
--- NOTE | 2020-02-19 10:34 | ED Physician Documentation ---
PD HPI FEMALE - Stated complaint Stated Complaint: FEMALE - Chief complaint Chief Complaint: UTI - History obtained from History obtained from: Patient - History of Present Illness Timing - onset: Last night Timing - duration: Days (1/2) Timing - details: Abrupt onset, Still present Associated symptoms: Dysuria, Urinary frequency. No: Vaginal bleeding, Vaginal discharge, Genital sore/lesion Contributing factors: No: Exposed to STD Similar symptoms before: Diagnosis (UTIs) Review of Systems Constitutional: denies: Fever, Chills, Myalgias Nose: denies: Rhinorrhea / runny nose, Congestion Throat: denies: Sore throat Respiratory: denies: Cough : reports: Dysuria, Frequency. denies: Discharge Skin: denies: Rash Musculoskeletal: reports: Back pain (right flank). 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 : Incontinence, Frequency HEENT: Other Psych: Depression Musculoskeletal: None Derm: None - Past Surgical History Past Surgical History: Yes General: Cholecystectomy Ortho: Other /PARKING SUPERVISOR: LEEP (Cervical surgery) Neuro: Other - Present Medications Home Medications: Ambulatory Orders Medication Instructions Recorded Confirmed Clindamycin [Cleocin] 150 mg PO TID 7 Days #21 cap 02/19/20 Fluconazole [Diflucan] 150 mg PO Q3D #2 tablet 02/19/20 Naproxen 375 mg PO BID #15 tablet 02/19/20 Phenazopyridine HCl [Pyridium] 100 mg PO TID PRN #15 tablet 02/19/20 - Allergies Allergies/Adverse Reactions: Allergies Allergy/AdvReac Type Severity Reaction Status Date / Time tramadol AdvReac Severe Itching Verified 02/19/20 10:07 Latex, Natural Rubber AdvReac Intermediate Itching Verified 02/19/20 10:07 - Social History Does the pt smoke?: No Smoking Status: Never smoker Does the pt drink ETOH?: No Does the pt have substance abuse?: Yes - Immunizations Immunizations are current?: No Immunizations: TDAP >10years/unknown - POLST Patient has POLST: No PD ED PE NORMAL - Vitals Vital signs reviewed: Yes - General General: Alert and oriented X 3, No acute distress, Well developed/nourished - Abdomen Abdomen: Soft, Non tender - Female Female : Deferred - Rectal Rectal: Deferred - Back Back: No CVA TTP - Derm Derm: Normal color, Warm and dry Results - Vitals Vitals: Vital Signs - 24 hr 02/19/20 02/19/20 10:00 11:22 Temperature 37 C 36.9 C Heart Rate 70 68 Respiratory 16 20 Rate Blood Pressure 134/82 H 127/83 H O2 Saturation 94 99 Oxygen O2 Source Room air - Labs Labs: Laboratory Tests 02/19/20 02/19/20 10:45 11:40 Urine Color YELLOW Urine Clarity CLEAR Urine pH 7.0 Ur Specific [place] 1.015 Urine Protein TRACE Urine Glucose (UA) NEGATIVE Urine Ketones NEGATIVE Urine Occult Blood SMALL H Urine Nitrite NEGATIVE Urine Bilirubin NEGATIVE Urine Urobilinogen 0.2 (NORMAL) Ur Leukocyte Esterase SMALL H Urine RBC 0-5 Urine WBC 6-10 H Ur Squamous Epith Cells MOD Squamous H Urine Bacteria Rare Ur Microscopic Review INDICATED Urine Culture Comments NOT INDICATED C. glabrata (PCR) NEGATIVE C. krusei (PCR) NEGATIVE Yana species DNA NEGATIVE T. vaginalis (PCR) NEGATIVE Bact Vaginosis (PCR) NEGATIVE PD MEDICAL DECISION MAKING - ED course Complexity details: considered differential, d/w patient Departure - Departure Disposition: 01 Home, Self Care Clinical Impression: Dysuria Condition: Stable Record reviewed to determine appropriate education?: Yes Follow-Up: Monica Vidales ARNP [Primary Care Provider] - Prescriptions: Clindamycin [Cleocin] 150 mg PO TID 7 Days #21 cap Fluconazole [Diflucan] 150 mg PO Q3D #2 tablet Naproxen 375 mg PO BID #15 tablet Phenazopyridine HCl [Pyridium] 100 mg PO TID PRN #15 tablet PRN Reason: Abdominal Pain Comments: Get the results of the vaginal swab and urine culture in a couple of days. Meanwhile we will treat for potential urethral infection or vaginal infection. Both of these can give your symptoms. Clindamycin antibiotic as directed 3 times a day for a week. Add antifungal Diflucan every third day for 2 doses as well. Anti-inflammatory naproxen twice daily to help with discomfort and phen azopyridine will help with the discomfort as well. Recheck if not improving well over the next 2 to 3 days and return if worse. Discharge Date/Time: 02/19/20 11:47
[2020-02-19 10:49] LABS: BILIRUBIN,URINE NEGATIVE (NEGATIVE); GLUCOSE, URINE (UA) NEGATIVE (NEGATIVE); KETONES,URINE (UA) NEGATIVE (NEGATIVE); LEUKOCYTE ESTERASE, URINE SMALL (NEGATIVE); NITRITE,URINE NEGATIVE (NEGATIVE); OCCULT BLOOD,URINE SMALL (NEGATIVE); PROTEIN,URINE TRACE mg/dL (NEGATIVE); UROBILINOGEN,URINE 0.2 (NORMAL) E.U./dL (NORMAL)
[2020-02-19 10:51] LABS: CLARITY,URINE CLEAR (CLEAR)
[2020-02-19 11:02] LABS: RBC,URINE 0-5 /HPF (0-5); SQUAMOUS EPITHELIAL CELL,UR MOD Squamous (<= Few)
[2020-02-19 11:03] LABS: BACTERIA,URINE Rare /HPF (None Seen)
[2020-02-19] MEDS ORDERED: ACETAMINOPHEN 325 MG TABLET PO STA (11:10)
[2020-02-19] MEDS ORDERED: PHENAZOPYRIDINE 100 MG TABLET PO STA (11:10)
[2020-02-19] MEDS ORDERED: CLINDAMYCIN 150 MG CAPSULE PO STA (11:10)
[2020-02-19] MEDS ORDERED: FLUCONAZOLE 100 MG TABLET PO STA (11:10)
[2020-02-19 11:32] VITALS: BP 127/83
[2020-02-19 13:40] LABS: CANDIDA GROUP DNA NEGATIVE (NEGATIVE); CANDIDA KRUSEI DNA NEGATIVE (NEGATIVE); TRICHOMONAS VAGINALIS DNA NEGATIVE (NEGATIVE)
== END 2020-02-19 11:47 | disposition home or self-care (01) ==
LOC: ED 09:44
DX: R30.0 Dysuria (principal); R35.0 Frequency of micturition; R10.9 Unspecified abdominal pain
CPT/HCPCS: 81001; 87481; 87661; 87801; 99283; 99284; A9270; 81003; 87086

== ENCOUNTER 2020-05-05 16:00 | Emergency (ER) | payer MEDICAID ==
[2020-05-05 16:07] VITALS: BP 136/85
[2020-05-05 16:26] LABS: BILIRUBIN,URINE NEGATIVE (NEGATIVE); GLUCOSE, URINE (UA) NEGATIVE (NEGATIVE); KETONES,URINE (UA) NEGATIVE (NEGATIVE); LEUKOCYTE ESTERASE, URINE MODERATE (NEGATIVE); NITRITE,URINE NEGATIVE (NEGATIVE); OCCULT BLOOD,URINE LARGE (NEGATIVE); PROTEIN,URINE 30 mg/dL (NEGATIVE); UROBILINOGEN,URINE 0.2 (NORMAL) E.U./dL (NORMAL)
[2020-05-05 16:29] LABS: CLARITY,URINE CLOUDY (CLEAR); HCG UR QUAL NEGATIVE
[2020-05-05 16:35] LABS: BACTERIA,URINE Moderate /HPF (None Seen); RBC,URINE TNTC /HPF (0-5); SQUAMOUS EPITHELIAL CELL,UR MANY Squamous (<= Few)
[2020-05-05] MEDS ORDERED: cephALEXin 250 MG CAPSULE PO STA (17:00)
[2020-05-05] MEDS ORDERED: PHENAZOPYRIDINE 100 MG TABLET PO STA (17:01)
--- NOTE | 2020-05-05 17:09 | ED Physician Documentation ---
PD HPI FEMALE - Stated complaint Stated Complaint: FEMALE - Chief complaint Chief Complaint: UTI - History obtained from History obtained from: Patient - History of Present Illness Timing - onset: Today Timing - duration: Days (1) Timing - details: Gradual onset Pain level max: 4 Pain level max: 3 Associated symptoms: Dysuria, Urinary frequency Contributing factors: No: - Additional information Additional information: 44-year-old female with UTI symptoms today. Pain and burning with urination. Worse with urination, better with rest. 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 : Incontinence, Frequency HEENT: Other Psych: Depression Musculoskeletal: None Derm: None - Past Surgical History Past Surgical History: Yes General: Cholecystectomy Ortho: Other /GEOPHYSICAL PROSPECTOR: LEEP (Cervical surgery) Neuro: Other - Present Medications Home Medications: Ambulatory Orders Medication Instructions Recorded Confirmed Phenazopyridine HCl [Pyridium] 200 mg PO TID PRN #6 tablet 05/05/20 cephALEXin [Keflex] 500 mg PO Q6H #20 capsule 05/05/20 - Allergies Allergies/Adverse Reactions: Allergies Allergy/AdvReac Type Severity Reaction Status Date / Time tramadol AdvReac Severe Itching Verified 05/05/20 16:03 Latex, Natural Rubber AdvReac Intermediate Itching Verified 05/05/20 16:03 - Social History Does the pt smoke?: No Smoking Status: Never smoker Does the pt drink ETOH?: No Does the pt have substance abuse?: Yes - Immunizations Immunizations are current?: No Immunizations: TDAP >10years/unknown - POLST Patient has POLST: No PD ED PE NORMAL - Vitals Vital signs reviewed: Yes - General General: Alert and oriented X 3, No acute distress - HEENT HEENT: Moist mucous membranes - Neck Neck: Supple, no meningeal sign - Cardiac Cardiac: RRR - Respiratory Respiratory: No respiratory distress, Clear bilaterally - Abdomen Abdomen: Soft, Non tender, Non distended - Back Back: No CVA TTP - Derm Derm: Warm and dry - Neuro Neuro: Alert and oriented X 3 Results - Vitals Vitals: Vital Signs - 24 hr 05/05/20 16:04 Temperature 36.7 C Heart Rate 85 Respiratory 18 Rate Blood Pressure 136/85 H O2 Saturation 99 Oxygen O2 Source Room air - Labs Labs: Laboratory Tests 05/05/20 16:18 Urine Color YELLOW Urine Clarity CLOUDY Urine pH 6.0 Ur Specific [place] 1.020 Urine Protein 30 H Urine Glucose (UA) NEGATIVE Urine Ketones NEGATIVE Urine Occult Blood LARGE H Urine Nitrite NEGATIVE Urine Bilirubin NEGATIVE Urine Urobilinogen 0.2 (NORMAL) Ur Leukocyte Esterase MODERATE H Urine RBC TNTC H Urine WBC >25 H Ur Squamous Epith Cells MANY Squamous H Urine Bacteria Moderate H Ur Microscopic Review INDICATED Urine Culture Comments NOT INDICATED Urine HCG, Qual NEGATIVE PD MEDICAL DECISION MAKING - ED course Complexity details: considered differential, d/w patient ED course: Patient with a UTI. Will place on antibiotics and Pyridium. Patient is well- appearing, nontoxic. Afebrile. No evidence of pyelonephritis. Patient counseled regarding signs and symptoms for which I believe and urgent re-rodolfo luation would be necessary. Patient with good understanding of and agreement to plan and is comfortable going home at this time This document was made in part using voice recognition software. While efforts are made to proofread this document, sound alike and grammatical errors may occur. Departure - Departure Disposition: Home, Self Care Clinical Impression: UTI (urinary tract infection) Qualifiers: Urinary tract infection type: acute cystitis Hematuria presence: without hematuria Qualified Code(s): N30.00 - Acute cystitis without hematuria Condition: Good Instructions: ED UTI Cystitis Female Follow-Up: Monica Vidales ARNP [Primary Care Provider] - Within 1 week Prescriptions: cephALEXin [Keflex] 500 mg PO Q6H #20 capsule Phenazopyridine HCl [Pyridium] 200 mg PO TID PRN #6 tablet PRN Reason: dysuria Comments: Take all antibiotics until gone. Return if you worsen. Follow-up with your doctor for further care. Discharge Date/Time: 05/05/20 17:12
== END 2020-05-05 17:12 | disposition home or self-care (01) ==
LOC: ED 16:00
DX: N30.00 Acute cystitis without hematuria (principal)
CPT/HCPCS: 81001; 81025; 99283; 99284; A9270; 81003; 87086

== ENCOUNTER 2020-09-26 16:29 | Emergency (ER) | payer MEDICAID ==
[2020-09-26] MEDS ORDERED: TETANUS/DIPHTHERIA/PERTUSSIS 0.5 ML SYRINGE IM ONE (17:11)
[2020-09-26] MEDS ORDERED: HYDROcod/ACETAM 5/325 MG TABLET PO STA (17:11)
--- NOTE | 2020-09-26 17:12 | ED Physician Documentation ---
PD HPI LOWER EXT INJURY - Stated complaint Stated Complaint: GLF - Chief complaint Chief Complaint: Trauma Ext - History obtained from History obtained from: Patient - Additional information Additional information: 2 days ago she tripped and fell in a pothole. She has scrapes on both hands. Tetanus is unknown. She also injured her right ankle, left hip, left shoulder. No head or neck injury. No possibility of . 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 : Incontinence, Frequency HEENT: Other Psych: Depression Musculoskeletal: None Derm: None - Past Surgical History Past Surgical History: Yes General: Cholecystectomy Ortho: Other /MAPLE SYRUP MAKER: LEEP (Cervical surgery) Neuro: Other - Present Medications Home Medications: Ambulatory Orders Medication Instructions Recorded Confirmed HYDROcod/ACETAM 5/325 [[place] 5/325] 1 - 2 tab PO Q6H PRN #10 tablet 09/26/20 - Allergies Allergies/Adverse Reactions: Allergies Allergy/AdvReac Type Severity Reaction Status Date / Time tramadol AdvReac Severe Itching Verified 09/26/20 16:43 Latex, Natural Rubber AdvReac Intermediate Itching Verified 09/26/20 16:43 - Social History Does the pt smoke?: No Smoking Status: Never smoker Does the pt drink ETOH?: No Does the pt have substance abuse?: Yes - Immunizations Immunizations are current?: No Immunizations: TDAP >10years/unknown - POLST Patient has POLST: No PD ED PE NORMAL - Vitals Vital signs reviewed: Yes - General General: Alert and oriented X 3, No acute distress - HEENT HEENT: PERRL, EOMI - Neck Neck: Supple, no meningeal sign, No bony TTP - Cardiac Cardiac: RRR, No murmur - Respiratory Respiratory: No respiratory distress, Clear bilaterally - Abdomen Abdomen: Non tender - Extremities Extremities: Other (see mdm ) - Neuro Neuro: Alert and oriented X 3, Normal speech Eye Opening: Spontaneous Motor: Obeys Commands Results - Vitals Vitals: Vital Signs - 24 hr 09/26/20 16:40 Temperature 36.0 C L Heart Rate 83 Respiratory 16 Rate Blood Pressure 136/77 H O2 Saturation 97 Oxygen O2 Source Room air PD MEDICAL DECISION MAKING - ED course ED course: Both hands have shallow scrapes on the palms. No retained foreign body. No limited range of motion or bony tenderness of either hand. The wrist is nontender. Mild diffuse tenderness of the left shoulder. Full range of motion though. Left hip is nontender and painless internal and external rotation. Mild tenderness over the lateral malleolus of the right ankle. No deformity. No proximal fibular or foot tenderness. I am prescribing a short course of short-acting opioid pain medication for this patient. 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 I have discussed that the opioids are for short term therapy only, and will not be refilled from the ED. Departure - Departure Disposition: 01 Home, Self Care Clinical Impression: Ankle sprain, Fall, Multiple abrasions Condition: Good Record reviewed to determine appropriate education?: Yes Instructions: ED Sprain Ankle W X Ray Prescriptions: HYDROcod/ACETAM 5/325 [[place] 5/325] 1 - 2 tab PO Q6H PRN #10 tablet PRN Reason: Pain Comments: X-ray of the right ankle demonstrates evidence of old trauma but nothing acute appearing You can wash the abrasions with soap and water and just keep them covered with a Band-Aid. Return for new or worsening symptoms. Follow-up with your doctor in a week if not better. I am prescribing a short course of narcotic pain medication for you. These are potentially dangerous and addictive medications that should be used carefully. These medications may constipate you. Take an [id number] stool softener (docusate) twice daily with plenty of water while taking these medications. If you go 24 hours without a bowel movement, take [id number] miralax, per package instructions. Do not drink or drive while taking these medications. If you received narcotic or sedating medications while in the emergency dep artment, do not drive for 24 hours. Store this medication in a safe, secure place and out of reach of children. It is a violation of federal law to give or sell this medication to another person or to use in a manner other than prescribed. The ED will not refill narcotic prescriptions, including prescriptions lost or stolen. To dispose of unwanted medications: 1. [facility] at [address] in [place] has a medication drop box. They accept prescription medications (in pill form) Saturday through Saturday 9:00 a.m. to 5:00 p.m. 2. The [facility] accepts prescription medications (in pill form only) for disposal year round. Call for more information. 3. Contact the [facility] for the next [facility] sponsored prescription drug collection event. , [phone], or [phone]; Note that many narcotic pain relievers also contain Tylenol/acetaminophen. Please ensure that your total dose of acetaminophen from all sources does not exceed 3 g (3000 mg) per day.
--- NOTE | 2020-09-26 17:31 | XRAY Report ---
PROCEDURE: Ankle 3 View RT INDICATIONS: ankle inj TECHNIQUE: 3 views of the ankle were acquired. COMPARISON: X-ray right foot, 11/28/2017. FINDINGS: Bones: No fractures or dislocations. Ankle mortise is normally aligned. No suspicious bony lesions . Ossicles are noted distal to the lateral malleolus. There is a ossicle in the anterior tibiotalar joint, suspicious for an intra-articular body Calcaneal spurring. Soft tissues: No tibiotalar joint effusion. Achilles tendon appears normal. IMPRESSION: 1. No fracture or dislocation. 2. Ossicles distal to the lateral malleolus are probably sequelae of old injury. 3. Suspect an intra-articular body in the anterior tibiotalar joint. Reviewed by: Nya Brice MD on 09/26/2020 5:30 PM PDT Approved by: Nya Brice MD on 09/26/2020 5:30 PM PDT Station ID: [id number]
[2020-09-26 17:55] VITALS: BP 133/74
== END 2020-09-26 18:01 | disposition home or self-care (01) ==
LOC: ED 16:29
DX: S93.401A Sprain of unspecified ligament of right ankle, initial encounter (principal); S60.512A Abrasion of left hand, initial encounter; S60.511A Abrasion of right hand, initial encounter; M25.512 Pain in left shoulder; W01.0XXA Fall on same level from slipping, tripping and stumbling without subsequent striking against object, initial encounter; Y93.01 Activity, walking, marching and hiking; Y92.008 Other place in unspecified non-institutional (private) residence as the place of occurrence of the external cause; Z23 Encounter for immunization
CPT/HCPCS: 73610; 90471; 90715; 99283; A9270

== ENCOUNTER 2021-06-25 12:12 | Emergency (ER) | payer MEDICAID ==
--- NOTE | 2021-06-25 12:28 | ED Physician Documentation ---
History of Present Illness - Stated complaint Stated Complaint: VOMITING,HEADACHE,DIARRHEA - Chief complaint Chief Complaint: Abd Pain - History obtained from History obtained from: Patient - Additonal information Additional information: 45-year-old woman with 2 days of severe gradual onset headache associated with nausea and light sensitivity. She does not have a history of migraines. Last night after eating some raw chicken she developed about 6 hours later vomiting and diarrhea. No fevers. She had COVID about a month ago, does not think the current headache is related to Covid. It was gradual in onset, she woke up with it but then it continued to worsen 2 nights ago. She denies fevers, chills. She was sweaty since last night since developing the vomiting and diarrhea. Review of Systems Constitutional: reports: Sweats. 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: LEEP (Cervical surgery) Neuro: Other - Present Medications Home Medications: Ambulatory Orders Medication Instructions Recorded Confirmed Guaifenesin/Pseudoephedrne HCl 1 each PO BID PRN #20 ea 06/25/21 [Mucinex D ER 600-60 mg Tablet] Loperamide [Imodium] 2 mg PO QID PRN #10 cap 06/25/21 Ondansetron Odt [Zofran] 4 mg TL Q6H PRN #10 tablet 06/25/21 - Allergies Allergies/Adverse Reactions: Allergies Allergy/AdvReac Type Severity Reaction Status Date / Time tramadol AdvReac Severe Itching Verified 06/25/21 12:23 Latex, Natural Rubber AdvReac Intermediate Itching Verified 06/25/21 12:23 - Social History Does the pt smoke?: No Smoking Status: Never smoker Does the pt drink ETOH?: No Does the pt have substance abuse?: Yes - Immunizations Immunizations are current?: No Immunizations: TDAP >10years/unknown - POLST Patient has POLST: No PD ED PE NORMAL - Vitals Vital signs reviewed: Yes - General General: Alert and oriented X 3, No acute distress - HEENT HEENT: PERRL, EOMI, Other (photophobic/sunglasses; Serous otitis on the right) - Neck Neck: Supple, no meningeal sign, No bony TTP - Cardiac Cardiac: RRR, No murmur - Respiratory Respiratory: No respiratory distress, Clear bilaterally - Abdomen Abdomen: Soft, Non tender - Back Back: No CVA TTP, No spinal TTP - Derm Derm: Normal color, Warm and dry, No rash - Neuro Neuro: Alert and oriented X 3, No motor deficit, No sensory deficit, Normal speech Eye Opening: Spontaneous Motor: Obeys Commands Verbal: Oriented GCS Score: 15 - Psych Psych: Normal mood, Normal affect Results - Vitals Vitals: Vital Signs - 24 hr 06/25/21 12:21 Temperature 36.6 C Heart Rate 94 Respiratory 16 Rate Blood Pressure 148/107 H O2 Saturation 97 Oxygen O2 Source Room air PD MEDICAL DECISION MAKING - ED course ED course: 45-year-old woman with gradual onset headache of 2 days duration. History really not too concerning, gradual in onset and seemingly migrainous albeit no history of that in the past. Feeling better after divided doses of Toradol, Haldol and Reglan here and sleeping comfortably on repeat evaluation. CT of the head interpreted contemporaneously by me is without evidence of acute trauma. Departure - Departure Disposition: 01 Home, Self Care Clinical Impression: Headache, Gastroenteritis, Serous otitis media Condition: Good Record reviewed to determine appropriate education?: Yes Instructions: ED Gastroenteritis Non Infec, ED Headache Tension Prescriptions: Loperamide [Imodium] 2 mg PO QID PRN #10 cap PRN Reason: Diarrhea Guaifenesin/Pseudoephedrne HCl [Mucinex D ER 600-60 mg Tablet] 1 each PO BID PRN #20 ea PRN Reason: congestion Ondansetron Odt [Zofran] 4 mg TL Q6H PRN #10 tablet PRN Reason: Nausea / Vomiting Comments: Call your doctor to arrange a follow-up appointment, make the next available appointment. In the interim, return anytime if worse or if new symptoms develop.
[2021-06-25] MEDS ORDERED: HALOPERIDOL 5 MG/ML VIAL IVP ONE (12:43)
[2021-06-25] MEDS ORDERED: KETOROLAC 15 MG/ML VIAL IVP STA (12:43)
--- NOTE | 2021-06-25 13:19 | CT Report ---
PROCEDURE: HEAD WO INDICATIONS: headache TECHNIQUE: Noncontrast 4.5 mm thick angled axial sections acquired from the foramen magnum to the vertex. For r adiation dose reduction, the following was used: automated exposure control, adjustment of mA and/or kV according to patient size. COMPARISON: None. FINDINGS: Image quality: Patient motion artifact requiring partial repeat, diagnostic. CSF spaces: Basal cisterns are patent. No extra-axial fluid collections. Ventricles are normal in size and shape. Brain: No midline shift. No intracranial masses or hemorrhage. Aguiar-white matter interface is norm al. Skull and face: Calvarium and visualized facial bones are intact, without suspicious lesions. Sinuses: Partial opacification of the right mastoids, uncertain clinical significance. The visualized paranasal sinuses and left mastoids are clear. IMPRESSION: 1. No evidence of acute intracranial process. 2. Partial opacification of the right mastoids, uncertain clinical significance, usually an incidenta l finding. Reviewed by: Emiliano Purvis MD on 06/25/2021 12:18 PM [facility] Approved by: Emiliano Purvis MD on 06/25/2021 12:18 PM [facility] Station ID: [id number]
[2021-06-25] MEDS ORDERED: METOCLOPRAMIDE 10 MG/2 ML VIAL IVP STA (13:38)
[2021-06-25 14:28] VITALS: BP 133/89
== END 2021-06-25 14:28 | disposition home or self-care (01) ==
LOC: ED 12:12
DX: R51.9 Headache, unspecified (principal); K52.9 Noninfective gastroenteritis and colitis, unspecified; H65.91 Unspecified nonsuppurative otitis media, right ear
CPT/HCPCS: 70450; 96374; 96375; 99282; 99284; J2765

== ENCOUNTER 2021-07-10 11:11 | Outpatient (CLI) | payer MEDICAID ==
--- NOTE | 2021-07-10 12:53 | XRAY Report ---
PROCEDURE: Shoulder 3 View LT INDICATIONS: L SHOULDER PX TECHNIQUE: 3 views of the shoulder were acquired. COMPARISON: None. FINDINGS: Bones: No fractures or dislocations. No suspicious bony lesions. Visualized ribs appear intact. Soft tissues: Calcifications adjacent to the head of the humerus may represent calcific tendinosis ve rsus calcific bursitis. IMPRESSION: Calcific tendinosis versus calcific bursitis. No evidence acute bony abnormality of the left shoulder. If clinical suspicion and/or symptoms persist, further assessment with repeat plain films or advanced imaging (e.g., CT, MRI, or bone scan) may be helpful for further assessment. Reviewed by: Emiliano Purvis MD on 07/10/2021 12:52 PM PDT Approved by: Emiliano Purvis MD on 07/10/2021 12:52 PM PDT Station ID: [id number]
== END 2021-07-10 23:59 | disposition home or self-care (01) ==
LOC: DI.N 11:11
PROVIDERS: ATTEND Family Medicine
DX: M25.512 Pain in left shoulder (principal); R93.6 Abnormal findings on diagnostic imaging of limbs; R93.89 Abnormal findings on diagnostic imaging of other specified body structures

== ENCOUNTER 2021-10-22 14:53 | Emergency (ER) | payer MEDICAID ==
--- NOTE | 2021-10-22 15:56 | XRAY Report ---
PROCEDURE: Ankle 3 View RT INDICATIONS: Trauma TECHNIQUE: 3 views of the ankle were acquired. COMPARISON: None FINDINGS: Bones: No fractures or dislocations. Ankle mortise is normally aligned. No suspicious bony lesions . Soft tissues: No tibiotalar joint effusion. Achilles tendon appears normal. IMPRESSION: No acute normality of the right ankle. Reviewed by: Terrell Joseph on 10/22/2021 2:55 PM [facility] Approved by: Terrell Joseph on 10/22/2021 2:55 PM [facility] Station ID: [id number]
--- NOTE | 2021-10-22 16:52 | ED Physician Documentation ---
History of Present Illness - Stated complaint Stated Complaint: RT ANKLE PX - Chief complaint Chief Complaint: Ext Problem - History obtained from History obtained from: Patient - Additonal information Additional information: AndThe patient comes to the emergency department with chief complaint of right ankle pain and swelling for the last few days. She states she has problems with her left ankle been working a lot lately, so feels like she has overused the right side. She denies any specific trauma otherwise. Patient denies any other complaints at this time. Review of Systems Ten Systems: 10 systems reviewed and negative Constitutional: reports: Reviewed and negative Eyes: reports: Reviewed and negative Ears: reports: Reviewed and negative Nose: reports: Reviewed and negative Throat: reports: Reviewed and negative Cardiac: reports: Reviewed and negative Respiratory: reports: Reviewed and negative GI: reports: Reviewed and negative : reports: Reviewed and negative Skin: reports: Reviewed and negative Musculoskeletal: reports: Joint pain, Joint swelling, Pain with weight bearing Neurologic: reports: Reviewed and negative Psychiatric: reports: Reviewed and negative Endocrine: reports: Reviewed and negative Immunocompromised: reports: Reviewed and negative PD PAST MEDICAL HISTORY - Past Medical History Cardiovascular: None Respiratory: None Neuro: None Endocrine/Autoimmune: None GI: Hepatitis, 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 : Incontinence, Frequency HEENT: Other Psych: Depression Musculoskeletal: None Derm: None - Past Surgical History Past Surgical History: Yes General: Cholecystectomy Ortho: 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: LEEP (Cervical surgery) Neuro: Other - Present Medications Home Medications: Ambulatory Orders Medication Instructions Recorded Confirmed Guaifenesin/Pseudoephedrne HCl 1 each PO BID PRN #20 ea 06/25/21 [Mucinex D ER 600-60 mg Tablet] Loperamide [Imodium] 2 mg PO QID PRN #10 cap 06/25/21 Ondansetron Odt [Zofran] 4 mg TL Q6H PRN #10 tablet 06/25/21 Naproxen 500 mg PO BID PRN #14 tab 10/22/21 predniSONE [Deltasone] 60 mg PO DAILY 5 Days #15 tablet 10/22/21 - Allergies Allergies/Adverse Reactions: Allergies Allergy/AdvReac Type Severity Reaction Status Date / Time tramadol AdvReac Severe Itching Verified 10/22/21 15:02 Latex, Natural Rubber AdvReac Intermediate Itching Verified 10/22/21 15:02 - Social History Does the pt smoke?: No Smoking Status: Never smoker Does the pt drink ETOH?: No Does the pt have substance abuse?: Yes - Immunizations Immunizations are current?: No Immunizations: TDAP >10years/unknown - POLST Patient has POLST: No PD ED PE NORMAL - Vitals Vital signs reviewed: Yes - General General: Alert and oriented X 3, No acute distress, Well developed/nourished - HEENT HEENT: Atraumatic, PERRL, EOMI, Moist mucous membranes - Neck Neck: Supple, no meningeal sign - Cardiac Cardiac: Strong equal pulses - Respiratory Respiratory: No respiratory distress - Derm Derm: Normal color, Warm and dry, No rash - Extremities Extremities: No deformity, Other (Moderate edema over the right and lateral malleolus. No deformity. 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, No motor deficit, No sensory deficit, Normal speech - Psych Psych: Normal mood, Normal affect Results - Vitals Vitals: Vital Signs - 24 hr 10/22/21 14:59 Heart Rate 77 Respiratory 16 Rate Blood Pressure 138/97 H O2 Saturation 100 Oxygen O2 Source Room air - Rads (name of study) Right ankle x-ray series Radiology: Final report received, EMP read indepedently, See rad report (Negative) PD MEDICAL DECISION MAKING - ED course Complexity details: reviewed results, re-evaluated patient, considered differential, d/w patient ED course: I discussed with the patient that she most likely does indeed have an overuse injury. I have put her in an air splint for extra support and we have discussed symptomatic management at home. Departure - Departure Disposition: 01 Home, Self Care Clinical Impression: Strain of right ankle and foot Qualifiers: Encounter type: initial encounter Qualified Code(s): S96.911A - Strain of unspecified muscle and tendon at ankle and foot level, right foot, initial encounter Condition: Stable Instructions: ED Sprain Ankle Prescriptions: predniSONE [Deltasone] 60 mg PO DAILY 5 Days #15 tablet Naproxen 500 mg PO BID PRN #14 tab PRN Reason: Pain
[2021-10-22] MEDS ORDERED: NAPROXEN 250 MG TABLET PO STA (16:59)
[2021-10-22 17:04] VITALS: BP 121/73
== END 2021-10-22 17:10 | disposition home or self-care (01) ==
LOC: ED 14:53
DX: S96.911A Strain of unspecified muscle and tendon at ankle and foot level, right foot, initial encounter (principal); X50.9XXA Other and unspecified overexertion or strenuous movements or postures, initial encounter
CPT/HCPCS: 73610; 99282; 99283; A9270

== ENCOUNTER 2022-03-28 12:39 | Emergency (ER) | payer MEDICAID ==
--- NOTE | 2022-03-28 16:15 | ED Physician Documentation ---
PD HPI URI - Stated complaint Stated Complaint: NAUSEA/CONGESTION - Chief complaint Chief Complaint: General - History obtained from History obtained from: Patient - History of Present Illness Timing - onset: How many days ago (5) Timing duration: Days (5) Timing details: Gradual onset, Still present (increased congestion and feverish the past 1-2 days.) Associated symptoms: Fever, Chills, Nasal congestion, Dry cough, NVD (nausea without diarrhea and only vomited once with coughing.) Contributing factors: Sick contact (others at work with flu.). No: Immunocompromised, Unimmunized Similar symptoms before: Has not had sx before Review of Systems Constitutional: reports: Fever, Chills, Myalgias Nose: reports: Congestion Throat: denies: Sore throat Respiratory: reports: Cough. denies: Wheezing GI: reports: Nausea, Vomiting (once). denies: Abdominal Pain, Diarrhea Neurologic: reports: Generalized weakness. 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: LEEP (Cervical surgery) Neuro: Other - Present Medications Home Medications: Ambulatory Orders Medication Instructions Recorded Confirmed Albuterol Sulf [Ventolin Hfa 2 puffs INH QID #1 each 03/28/22 Inhaler] Benzonatate [Tessalon] 100 mg PO Q6H PRN #15 cap 03/28/22 Promethazine [Phenergan] 25 mg PO Q6H PRN #15 tab 03/28/22 - Allergies Allergies/Adverse Reactions: Allergies Allergy/AdvReac Type Severity Reaction Status Date / Time tramadol AdvReac Severe Itching Verified 03/28/22 12:55 Latex, Natural Rubber AdvReac Intermediate Itching Verified 03/28/22 12:55 - Social History Does the pt smoke?: No Smoking Status: Never smoker Does the pt drink ETOH?: No Does the pt have substance abuse?: Yes - Immunizations Immunizations are current?: No Immunizations: TDAP >10years/unknown - POLST Patient has POLST: No PD ED PE NORMAL - Vitals Vital signs reviewed: Yes - General General: Alert and oriented X 3, No acute distress, Well developed/nourished - HEENT HEENT: Moist mucous membranes, Pharynx benign - Neck Neck: Supple, no meningeal sign, No adenopathy - Cardiac Cardiac: RRR, No murmur - Respiratory Respiratory: Clear bilaterally - Abdomen Abdomen: Normal bowel sounds, Soft, Non tender - Derm Derm: Normal color, Warm and dry, No rash - Neuro Neuro: Alert and oriented X 3, No motor deficit, Normal speech Results - Vitals Vitals: Vital Signs - 24 hr 03/28/22 03/28/22 12:52 16:46 Temperature 36 C L 37.2 C Heart Rate 95 74 Respiratory 16 16 Rate Blood Pressure 150/76 H 143/91 H O2 Saturation 94 97 Oxygen O2 Source Room air - Labs Labs: Laboratory Tests 03/28/22 16:35 Nasal Adenovirus (PCR) NOT DETECTED Nasal B. parapertussis DNA (PCR) NOT DETECTED Nasal Coronavir 229E PCR NOT DETECTED Nasal Coronavir HKU1 PCR NOT DETECTED Nasal Coronavir NL63 PCR NOT DETECTED Nasal Coronavir OC43 PCR NOT DETECTED Nasal Enterovir/Rhinovir PCR NOT DETECTED Nasal Influenza B PCR NOT DETECTED Nasal Influenza A PCR NOT DETECTED Nasal Parainfluen 1 PCR NOT DETECTED Nasal Parainfluen 2 PCR NOT DETECTED Nasal Parainfluen 3 PCR NOT DETECTED Nasal Parainfluen 4 PCR NOT DETECTED Nasal RSV (PCR) NOT DETECTED Nasal B.pertussis DNA PCR NOT DETECTED Nasal C.pneumoniae (PCR) NOT DETECTED [place] Human Metapneumo PCR NOT DETECTED Nasal M.pneumoniae (PCR) NOT DETECTED Nasal SARS-CoV-2 (PCR) NOT DETECTED PD MEDICAL DECISION MAKING - ED course Complexity details: considered differential (sounds likely flu, with PCR test still pending. can call her or she can look it up on Portal. Here for work note and given 2 days. ), d/w patient Departure - Departure Disposition: 01 Home, Self Care Clinical Impression: Acute viral syndrome Nausea & vomiting Qualifiers: Vomiting type: unspecified Qualified Code(s): R11.2 - Nausea with vomiting, unspecified Condition: Stable Record reviewed to determine appropriate education?: Yes Instructions: ED Viral Syndrome, ED Nausea Vomiting Follow-Up: Monica Vidales ARNP [Primary Care Provider] - Prescriptions: Promethazine [Phenergan] 25 mg PO Q6H PRN #15 tab PRN Reason: Nausea / Vomiting Benzonatate [Tessalon] 100 mg PO Q6H PRN #15 cap PRN Reason: Cough Albuterol Sulf [Ventolin Hfa Inhaler] 2 puffs INH QID #1 each Comments: We are running a viral PCR panel test. This will likely take a couple of hours on the results. We will try to call you with the results or you can look it up on the patient portal. It does sound flulike. You can use promethazine every 6 hours if needed for nausea. Benzonatate if needed for cough. Stay well-hydrated that Tylenol every 4-6 hours if needed for fevers or aches. Albuterol inhaler 2 to 3 puffs every 4-6 hours for cough and wheezing/trouble breathing. I would suggest 4 times a day regularly for the next week likely. Off work today and tomorrow and if need be into Saturday or Saturday based on your symptoms. I sent your prescriptions to the [facility] pharmacy here in [place]. You have a Viral PCR test pending. You need to self quarantine until the result is done and negative. Do not leave your house. Do not get near anybody. The results should be done in 48 to 72 hours, but sometimes longer. We will call with a positive result, the fastest way to get a negative result for confirmation though is to go to the hospital website at [email or web address], click on the my [employer] tab and sign up for the patient portal. If any friends or family get sick and would like to have a Covid test done, but do not have signs or symptoms that would necessitate being hospitalized, we encourage testing throughone of the local pharmacies or the Health Department. Call them to schedule an appointment. Forms: Activity restrictions Discharge Date/Time: 03/28/22 16:47
[2022-03-28] MEDS ORDERED: ONDANSETRON ODT 4 MG TABLET TL STA (16:33)
[2022-03-28] MEDS ORDERED: BENZONATATE 100 MG CAPSULE PO STA (16:33)
[2022-03-28 16:47] VITALS: BP 143/91
[2022-03-28 17:39] LABS: B. PARAPERTUSSIS- RESP PCR PAN NOT DETECTED; B. PERTUSSIS- RESP PCR PANEL NOT DETECTED; C. PNEUMONIAE- RESP PCR PANEL NOT DETECTED; CORONAVIRUS 229E-RESP PCR NOT DETECTED; CORONAVIRUS HKU1-RESP PCR NOT DETECTED; CORONAVIRUS NL63-RESP PCR NOT DETECTED; CORONAVIRUS OC43-RESP PCR NOT DETECTED; HUMAN METAPNEUMOVIRUS NOT DETECTED; INFLUENZA A- RESP PCR PANEL NOT DETECTED; INFLUENZA B - RESP PCR PANEL NOT DETECTED; M. PNEUMONIAE- RESP PCR PANEL NOT DETECTED; PARAINFLUENZA VIRUS 1 NOT DETECTED; PARAINFLUENZA VIRUS 2 NOT DETECTED; PARAINFLUENZA VIRUS 3 NOT DETECTED; PARAINFLUENZA VIRUS 4 NOT DETECTED; RHINOVIRUS/ENTEROVIRUS NOT DETECTED; RSV- RESP PCR PANEL NOT DETECTED; SARS-CoV-2 -RESP PCR PANEL NOT DETECTED
== END 2022-03-28 16:47 | disposition home or self-care (01) ==
LOC: ED 12:39
DX: B34.9 Viral infection, unspecified (principal); R11.2 Nausea with vomiting, unspecified; Z20.822 Contact with and (suspected) exposure to COVID-19
CPT/HCPCS: 87633; 99283; A9270; Q0162

== ENCOUNTER 2022-04-16 12:02 | Emergency (ER) | payer MEDICAID ==
[2022-04-16 12:31] VITALS: BP 135/76
--- NOTE | 2022-04-16 13:06 | XRAY Report ---
PROCEDURE: Ankle 3 View RT INDICATIONS: Trauma TECHNIQUE: 3 views of the ankle were acquired. COMPARISON: 10/22/2021, 10/26/2020 FINDINGS: Bones: There is a remote, stable fracture fragment seen distal to the lateral malleolus. No acute appearing fractures or dislocations. Ankle mortise is normally aligned. No suspicious bony lesions. The talar dome demonstrates an unremarkable appearance. Age-appropriate degenerative berenice nges are seen. A plantar calcaneal spur is incidentally noted. Soft tissues: No tibiotalar joint effusion. Achilles tendon appears normal. IMPRESSION: No gordy, acute fracture is seen. Remote fracture distal to the lateral malleolus. Reviewed by: Boo Dinh MD on 04/16/2022 12:05 PM [facility] Approved by: Boo Dinh MD on 04/16/2022 12:05 PM [facility] Station ID: [id number]
--- NOTE | 2022-04-16 15:27 | ED Physician Documentation ---
History of Present Illness - Stated complaint Stated Complaint: R ANKLE INJ - Chief complaint Chief Complaint: Trauma Ext - Additonal information Additional information: 46-year-old female presents emergency department for evaluation of acute right ankle pain. She does have a history of a remote fracture in the past. She was sitting watching TV and moved her ankle and felt pain. She reports the pain radiated up her right leg across her abdomen and down the left leg. She denies any recent falls or trauma. No fevers. No swelling. 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: LEEP (Cervical surgery) Neuro: Other - Present Medications Home Medications: Ambulatory Orders Medication Instructions Recorded Confirmed Albuterol Sulf [Ventolin Hfa 2 puffs INH QID #1 each 03/28/22 Inhaler] Benzonatate [Tessalon] 100 mg PO Q6H PRN #15 cap 03/28/22 Promethazine [Phenergan] 25 mg PO Q6H PRN #15 tab 03/28/22 - Allergies Allergies/Adverse Reactions: Allergies Allergy/AdvReac Type Severity Reaction Status Date / Time tramadol AdvReac Severe Itching Verified 04/16/22 12:31 Latex, Natural Rubber AdvReac Intermediate Itching Verified 04/16/22 12:31 - Social History Does the pt smoke?: No Smoking Status: Never smoker Does the pt drink ETOH?: No Does the pt have substance abuse?: Yes - Immunizations Immunizations are current?: No Immunizations: TDAP >10years/unknown - POLST Patient has POLST: No PD ED PE EXPANDED - General General: Alert - Extremities Extremities: Right ankle (Minimal swelling to the right lateral malleolus. No ecchymosis. Full range of motion of the ankle in all planes. I did not elicit significant tenderness with palpation of the distal fibula. No pain at the base of the fifth metatarsal.) Results - Vitals Vitals: Vital Signs - 24 hr 12/26/22 12:27 Temperature 36.9 C Heart Rate 69 Respiratory 16 Rate Blood Pressure 135/76 H O2 Saturation 98 Oxygen O2 Source Room air PD Medical Decision Making - ED course Complexity details: reviewed results, d/w patient ED course: 50-year-old female who has a history of a remote fracture in her right ankle presents emergency department for evaluation of acute pain in this ankle when she simply moved it on the couch. She reports the pain radiated up her leg across her abdomen and down the other 1. She feels that she cannot bear weight on the leg. On exam I was unable to elicit any significant tenderness. The lateral malleolus was mildly swollen but not ecchymotic. The x-ray does show a remote fracture distal to the malleolus. Patient has never followed with Ortho. She was placed in an air gel splint and given crutches. Made the recommendation for alternating Tylenol and ibuprofen. She will follow closely with her PCP for orthopedics referral. Clinically this does not appear swollen or with fever I have low suspicion for an infected joint. History is not suggestive of a DVT and by Wells criteria would be low risk. She is discharged home in stable condition. Departure - Departure Disposition: 01 Home, Self Care Clinical Impression: History of fracture of left ankle Left ankle pain Qualifiers: Chronicity: acute Qualified Code(s): M25.572 - Pain in left ankle and joints of left foot Condition: Stable Follow-Up: Mahamed Braun MD [Provider Admit Priv/Credential] - Comments: The x-ray of your foot shows that you have a remote or distal fracture to your lateral malleolus. This is likely something that will be managed nonoperatively. At this time we are placing you in an air gel splint. You are to use the crutches. Your primary care doctor should make a referral for you to orthopedics. You can take Tylenol and ibuprofen for discomfort.
== END 2022-04-16 15:46 | disposition home or self-care (01) ==
LOC: ED 12:02
DX: S82.61XA Displaced fracture of lateral malleolus of right fibula, initial encounter for closed fracture (principal); X58.XXXA Exposure to other specified factors, initial encounter
CPT/HCPCS: 99283

== ENCOUNTER 2022-05-06 14:36 | Emergency (ER) | payer MEDICAID ==
--- NOTE | 2022-05-06 15:00 | ED Physician Documentation ---
PD HPI FEMALE - Stated complaint Stated Complaint: FEMALE - Chief complaint Chief Complaint: UTI - History obtained from History obtained from: Patient, Family - History of Present Illness Timing - details: Gradual onset Pain level max: 4 Pain level max: 3 Associated symptoms: No: Vaginal pain, Vaginal bleeding, Vaginal discharge, Genital sore/lesion - Additional information Additional information: 46-year-old female presents to the emergency department stating that she began t o have dysuria, urinary frequency over the past 3 days. Feels similar to prior UTIs. No fevers. No chills. Worse with urination, nothing makes it better. Has not taken anything for this. Denies any vaginal bleeding, discharge, itching. No genital sores. No STD exposure. 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 (Cervical surgery) Neuro: Other - Present Medications Home Medications: Ambulatory Orders Medication Instructions Recorded Confirmed Nitrofurantoin [Macrobid] 100 mg PO BID #10 cap 05/06/22 - Allergies Allergies/Adverse Reactions: Allergies Allergy/AdvReac Type Severity Reaction Status Date / Time tramadol AdvReac Severe Itching Verified 05/06/22 14:39 Latex, Natural Rubber AdvReac Intermediate Itching Verified 05/06/22 14:39 - Social History Does the pt smoke?: Yes Smoking Status: Current every day smoker Does the pt drink ETOH?: No Does the pt have substance abuse?: Yes Substance Use and Type: Marijuana - Immunizations Immunizations are current?: No Immunizations: TDAP >10years/unknown - POLST Patient has POLST: No PD ED PE NORMAL - Vitals Vital signs reviewed: Yes - General General: Alert and oriented X 3, No acute distress - HEENT HEENT: Moist mucous membranes - Neck Neck: Supple, no meningeal sign - Cardiac Cardiac: RRR, Strong equal pulses - Respiratory Respiratory: No respiratory distress, Clear bilaterally - Abdomen Abdomen: Soft, Non tender, Non distended - Back Back: No CVA TTP, No spinal TTP - Derm Derm: Warm and dry, No rash - Extremities Extremities: No edema - Neuro Neuro: Alert and oriented X 3 - Psych Psych: Normal mood, Normal affect Results - Vitals Vitals: Vital Signs - 24 hr 05/06/22 05/06/22 14:39 15:35 Temperature 36.6 C 36.6 C Heart Rate 88 82 Respiratory 16 16 Rate Blood Pressure 134/91 H 128/88 H O2 Saturation 97 98 Oxygen O2 Source Room air - Labs Labs: Laboratory Tests 05/06/22 05/06/22 14:46 15:20 Urine Color YELLOW Urine Clarity CLEAR Urine pH 5.5 Ur Specific [place] 1.025 Urine Protein NEGATIVE Urine Glucose (UA) NEGATIVE Urine Ketones NEGATIVE Urine Occult Blood TRACE-INTA Urine Nitrite NEGATIVE Urine Bilirubin NEGATIVE Urine Urobilinogen 0.2 (NORMAL) Ur Leukocyte Esterase NEGATIVE Ur Microscopic Review NOT INDICATED Urine Culture Comments NOT INDICATED Urine HCG, Qual NEGATIVE C. glabrata (PCR) NEGATIVE C. krusei (PCR) NEGATIVE Yana species DNA NEGATIVE T. vaginalis (PCR) NEGATIVE Bact Vaginosis (PCR) NEGATIVE PD Medical Decision Making - ED course Complexity details: reviewed results, re-evaluated patient, considered differential, d/w patient ED course: Urinalysis does not show any infection at this time. She states that she has had yeast infections that have felt similar, therefore a bacterial vaginitis panel was ordered. Patient declines a pelvic exam, but does elect to self swab. I will call the patient when the results of this test are available. Patient was given a dose of Pyridium here. The bacterial vaginitis swab came back negative as well. Given her typical symptoms, and we will treat for possible UTI. Will prescribe Macrobid. The patient was called and contacted via telephone. She is comfortable with this plan. She will return if she worsens. She understands the uncertainty of the diagnosis at this point. Patient counseled regarding signs and symptoms for which I believe and urgent re-evaluation would be necessary. Patient with good understanding of and agreement to plan and is comfortable going home at this time This document was made in part using voice recognition software. While efforts are made to proofread this document, sound alike and grammatical errors may occur. Departure - Departure Disposition: 01 Home, Self Care Clinical Impression: Dysuria Condition: Good Instructions: ED Dysuria Uncertain Cause Follow-Up: Monica Vidales ARNP [Primary Care Provider] - Within 1 week Prescriptions: Nitrofurantoin [Macrobid] 100 mg PO BID #10 cap Comments: Your urinalysis does not show any evidence of infection at this time. Your vaginal swabs should be back in 1 to 2 hours, I will call you with the results. If you do not hear from me by about 6 PM, please call the emergency department. If treatment is needed, I will send your medications to the [facility] in [place]. Discharge Date/Time: 05/06/22 15:35
[2022-05-06 15:02] LABS: BILIRUBIN,URINE NEGATIVE (NEGATIVE); GLUCOSE, URINE (UA) NEGATIVE (NEGATIVE); KETONES,URINE (UA) NEGATIVE (NEGATIVE); LEUKOCYTE ESTERASE, URINE NEGATIVE (NEGATIVE); NITRITE,URINE NEGATIVE (NEGATIVE); OCCULT BLOOD,URINE TRACE-INTA (NEGATIVE); PH,URINE 5.5 PH (5.0-7.5); PROTEIN,URINE NEGATIVE (NEGATIVE); UROBILINOGEN,URINE 0.2 (NORMAL) E.U./dL (NORMAL)
[2022-05-06 15:05] LABS: CLARITY,URINE CLEAR (CLEAR); HCG UR QUAL NEGATIVE
[2022-05-06] MEDS ORDERED: PHENAZOPYRIDINE 100 MG TABLET PO STA (15:26)
[2022-05-06 15:36] VITALS: BP 128/88
[2022-05-06 17:04] LABS: BACTERIAL VAGINOSIS DNA NEGATIVE (NEGATIVE); CANDIDA GLABRATA DNA NEGATIVE (NEGATIVE); CANDIDA GROUP DNA NEGATIVE (NEGATIVE); CANDIDA KRUSEI DNA NEGATIVE (NEGATIVE); TRICHOMONAS VAGINALIS DNA NEGATIVE (NEGATIVE)
[2022-05-06 18:32] LABS: CHLAMYDIA TRACHOMATIS DNA NEGATIVE (NEGATIVE); NEISSERIA GONORRHOEAE DNA NEGATIVE (NEGATIVE)
== END 2022-05-06 15:35 | disposition home or self-care (01) ==
LOC: ED 14:36
DX: R30.0 Dysuria (principal); F17.200 Nicotine dependence, unspecified, uncomplicated
CPT/HCPCS: 81003; 81025; 81514; 87491; 87591; 99283; A9270; 81001; 87086; 87661

== ENCOUNTER 2022-06-05 14:48 | Outpatient (CLI) | payer MEDICAID ==
--- NOTE | 2022-06-05 17:07 | XRAY Report ---
PROCEDURE: Ankle 3 View RT INDICATIONS: RIGHT ANKLE PAIN TECHNIQUE: 3 views of the ankle were acquired. COMPARISON: 04/16/2022 FINDINGS: Bones: No fractures or dislocations. Ankle mortise is normally aligned. No suspicious bony lesions . Soft tissues: No tibiotalar joint effusion. Achilles tendon appears normal. IMPRESSION: Unremarkable right ankle radiographs Reviewed by: Veto Baker MD on 06/05/2022 4:05 PM [facility] Approved by: Veto Baker MD on 06/05/2022 4:05 PM [facility] Station ID: [id number]
== END 2022-06-05 14:49 | disposition home or self-care (01) ==
LOC: DI.WOS 14:48
PROVIDERS: ATTEND Physician Assistant Surgical
DX: M25.571 Pain in right ankle and joints of right foot (principal)

== ENCOUNTER 2022-10-02 11:31 | Emergency (ER) | payer MEDICAID ==
[2022-10-02 11:44] VITALS: BP 137/93
--- NOTE | 2022-10-02 12:05 | ED Physician Documentation ---
History of Present Illness - Stated complaint Stated Complaint: RT ELBOW PX - Chief complaint Chief Complaint: Ext Problem - Additonal information Additional information: 46-year-old female presents emergency department for evaluation of 2 months right elbow pain. States about 2 months ago she tripped and fell directly onto the right elbow. Over time it has continued to hurt and she often has pain that radiates down the forearm. She has had no swelling or erythema. No fevers. No history of previous injury to this elbow. She is right arm dominant. 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, Frequency HEENT: Other Psych: Depression Musculoskeletal: None Derm: None - Past Surgical History Past Surgical History: Yes General: Cholecystectomy Ortho: Other /SWAGER OPERATOR: LEEP (Cervical surgery) Neuro: Other - Present Medications Home Medications: Ambulatory Orders Medication Instructions Recorded Confirmed Nitrofurantoin [Macrobid] 100 mg PO BID #10 cap 05/06/22 - Allergies Allergies/Adverse Reactions: Allergies Allergy/AdvReac Type Severity Reaction Status Date / Time tramadol AdvReac Severe Itching Verified 10/02/22 11:42 Latex, Natural Rubber AdvReac Intermediate Itching Verified 10/02/22 11:42 - Social History Does the pt smoke?: Yes Smoking Status: Current every day smoker Does the pt drink ETOH?: No Does the pt have substance abuse?: Yes - Immunizations Immunizations are current?: No Immunizations: TDAP >10years/unknown - POLST Patient has POLST: No PD ED PE NORMAL - General General: Alert and oriented X 3, No acute distress - Respiratory Respiratory: Clear bilaterally - Extremities Extremities: Other (Mild tenderness elicited with palpation of the right proximal radial head without ecchymosis or deformity. Most of the pain was elicited with supination of the hand and wrist. No swelling or tenderness noted medially or on the olecranon. Normal flexion/extension.) Results - Vitals Vitals: Vital Signs - 24 hr 10/02/22 11:40 Temperature 36.0 C L Heart Rate 85 Respiratory 20 Rate Blood Pressure 137/93 H O2 Saturation 98 Oxygen O2 Source Room air - Rads (name of study) right elbow Relevant Findings:: EMP independent interpretation of test (No evidence of remote fracture; No acute findings) PD Medical Decision Making - ED course Complexity details: reviewed results, d/w patient ED course: 46-year-old female presents emergency department valuation of 2 months right elbow pain sustained when tripping 2 months ago falling directly onto the elbow. She reports initially it hurt but she thought that it would get better. Over the course of time she occasionally has intermittent swelling. She finds that she has most of the pain in the elbow when she attempts to supinate it. There is no obvious deformity. On exam there is nothing to suggest a bursitis or subacute infection/cellulitis. My interpretation of the x-rays that there is no acute findings to suggest remote fracture or acute injury. I suspect she had a severe contusion at the time of the original fall. I am recommending Tylenol and ibuprofen for discomfort. Given that its been 2 months with failure of the symptoms fully resolve she would benefit from referral to either orthopedics and/or to physical therapy. The usual emergent return precautions for worsening symptoms were discussed Departure - Departure Disposition: 01 Home, Self Care Clinical Impression: Right elbow pain Condition: Stable Record reviewed to determine appropriate education?: Yes Instructions: ED Contusion Upper Extr Ch Comments: You were seen today in the emergency department because about 2 months ago you had a fall directly onto your right elbow and since then you have had some persistent pain and occasional swelling of the elbow. Today the exam of the elbow did not show any obvious findings to suggest a bursitis or infection. My interpretation of the x-ray is also that there is no acute findings to suggest a remote fracture. It is possible that at the time of the fall you significantly bruised or contused your elbow and you may be having some residual inflammation causing the pain. I recommend that you take Tylenol and ibuprofen [id number] for discomfort. I would have you follow closely with your primary care doctor. Given that the pain has not improved over the last 2 months you may benefit from referral to either an orthopedic doctor and or to physical therapy.
--- NOTE | 2022-10-02 13:39 | XRAY Report ---
PROCEDURE: Elbow 3 View RT INDICATIONS: pain after tripping 2 months ago TECHNIQUE: 3 views of the elbow were acquired. COMPARISON: None. FINDINGS: Bones: No fractures or dislocations. No suspicious bony lesions. Soft tissues: No effusion. No suspicious soft tissue calcifications or masses. IMPRESSION: Unremarkable right elbow radiographs Reviewed by: Veto Baker MD on 10/02/2022 12:37 PM [facility] Approved by: Veto Baker MD on 10/02/2022 12:37 PM [facility] Station ID: [id number]
== END 2022-10-02 12:56 | disposition home or self-care (01) ==
LOC: ED 11:31
DX: M25.521 Pain in right elbow (principal); F17.200 Nicotine dependence, unspecified, uncomplicated
CPT/HCPCS: 99283

== ENCOUNTER 2022-10-17 08:00 | Outpatient (CLI) | payer MEDICAID ==
[2022-10-17 18:49] LABS: CHLAMYDIA TRACHOMATIS DNA NEGATIVE (NEGATIVE); NEISSERIA GONORRHOEAE DNA NEGATIVE (NEGATIVE)
[2022-10-17 20:06] LABS: BACTERIAL VAGINOSIS DNA NEGATIVE (NEGATIVE); CANDIDA GLABRATA DNA NEGATIVE (NEGATIVE); CANDIDA GROUP DNA NEGATIVE (NEGATIVE); CANDIDA KRUSEI DNA NEGATIVE (NEGATIVE); TRICHOMONAS VAGINALIS DNA NEGATIVE (NEGATIVE)
== END 2022-10-17 23:59 | disposition home or self-care (01) ==
LOC: LAB.WC 08:00
PROVIDERS: ATTEND Nurse Practitioner
DX: L72.9 Follicular cyst of the skin and subcutaneous tissue, unspecified (principal); Z11.3 Encounter for screening for infections with a predominantly sexual mode of transmission; N89.8 Other specified noninflammatory disorders of vagina
CPT/HCPCS: 81514; 87070; 87205; 87491; 87591; 87661

== ENCOUNTER 2022-10-30 14:37 | Outpatient (CLI) | payer MEDICAID ==
[2022-10-30 14:55] LABS: BASOPHILS # (AUTO) 0.1 10^3/uL (0.0-0.1); BASOPHILS % (AUTO) 0.5 %; EOSINOPHILS # (AUTO) 0.2 10^3/uL (0.0-0.7); EOSINOPHILS % (AUTO) 1.9 %; HCT - HEMATOCRIT 44.6 % (37.0-47.0); HGB - HEMOGLOBIN 14.6 g/dL (12.0-16.0); LYMPHOCYTES # (AUTO) 4.1 10^3/uL (1.5-3.5); LYMPHOCYTES % (AUTO) 39.7 %; MEAN CORPUSCULAR HEMOGLOBIN 28.9 pg (27.0-31.0); MEAN CORPUSCULAR HGB CONC 32.7 g/dL (32.0-36.0); MEAN CORPUSCULAR VOLUME 88.3 fL (81.0-99.0); MEAN PLATELET VOLUME 10.8 fL (7.9-10.8); MONOCYTES # (AUTO) 0.6 10^3/uL (0.0-1.0); MONOCYTES % (AUTO) 5.5 %; NEUTROPHILS # (AUTO) 5.4 10^3/uL (1.5-6.6); NEUTROPHILS % (AUTO) 52.2 %; PLT - PLATELET COUNT 257 10^3/uL (130-450); RED BLOOD COUNT 5.05 10^6/uL (4.20-5.40); RED CELL DISTRIBUTION WIDTH 13.6 % (12.0-15.0); WHITE BLOOD COUNT 10.3 x10^3/uL (4.8-10.8)
[2022-10-30 15:19] LABS: ALBUMIN 4.6 g/dL (3.2-5.5); ALBUMIN/GLOBULIN RATIO 1.6 (1.0-2.2); ALKALINE PHOSPHATASE 62 IU/L (42-121); ALT ALANINE AMINOTRANSFERASE 17 IU/L (10-60); AST ASPARTATE AMINOTRANSFERASE 18 IU/L (10-42); BILIRUBIN,TOTAL 0.7 mg/dL (0.2-1.0); BUN - BLOOD UREA NITROGEN 9 mg/dL (6-20); CALCIUM 9.8 mg/dL (8.5-10.3); CARBON DIOXIDE - CO2 26 mmol/L (21-32); CHLORIDE 104 mmol/L (101-111); CHOL/HDL RATIO 4.8 (<4.4); CHOLESTEROL 254 mg/dL; CREATININE 0.6 mg/dL (0.4-1.0); GFR - MDRD 108 (>89); GLUCOSE 125 mg/dL (70-100); HDL CHOLESTEROL 53 mg/dL; LDL CHOLESTEROL,CALCULATED 181 mg/dL; LDL/HDL RATIO 3.4 (<4.4); POTASSIUM 4.1 mmol/L (3.5-5.0); SODIUM 138 mmol/L (135-145); TOTAL PROTEIN 7.5 g/dL (6.7-8.2); TRIGLYCERIDES 102 mg/dL; VLDL CHOLESTEROL 20 mg/dL
[2022-10-30 15:31] LABS: THYROID STIMULATING HORMONE 0.7 uIU/mL (0.34-5.60)
== END 2022-10-30 14:38 | disposition home or self-care (01) ==
LOC: LAB 14:37
PROVIDERS: ATTEND Registered Nurse
DX: Z79.899 Other long term (current) drug therapy (principal); Z13.220 Encounter for screening for lipoid disorders; Z13.29 Encounter for screening for other suspected endocrine disorder
CPT/HCPCS: 36415; 80053; 80061; 83721; 84443; 85025

== ENCOUNTER 2022-11-03 13:55 | Emergency (ER) | payer MEDICAID ==
[2022-11-03 14:14] VITALS: BP 136/88
--- NOTE | 2022-11-03 15:56 | XRAY Report ---
PROCEDURE: Chest 1 View X-Ray INDICATIONS: chest pain TECHNIQUE: One view of the chest was acquired. COMPARISON: None. FINDINGS: Surgical changes and devices: None. Lungs and pleura: No pleural effusions or pneumothorax. Lungs are clear. Mediastinum: Mediastinal contours appear normal. Heart size is normal. Bones and chest wall: No suspicious bony lesions. Overlying soft tissues appear unremarkable. IMPRESSION: No acute cardiopulmonary process. Reviewed by: Hossein Garrison MD on 11/03/2022 2:54 PM [facility] Approved by: Hossein Garrison MD on 11/03/2022 2:54 PM [facility] Station ID: [id number]
--- NOTE | 2022-11-03 17:07 | ED Physician Documentation ---
History of Present Illness - Stated complaint Stated Complaint: RT CHEST PN - Chief complaint Chief Complaint: Cardiac - Additonal information Additional information: 46-year-old female presents emergency department for evaluation of 2 days of right upper chest pain. She denies any coughs or fevers. Pain is worse with movement. Not pleuritic. Doubts that it is her heart but she is concerned as she is a daily smoker as well as cannabis user. No hemoptysis. No hormone use. No recent travel or immobilization. She presents here with her who is seeking evaluation for left leg pain Review of Systems Constitutional: denies: Fever, Chills Cardiac: reports: Chest pain / pressure. 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 : Incontinence, Frequency HEENT: Other Psych: Depression Musculoskeletal: None Derm: None - Past Surgical History Past Surgical History: Yes General: Cholecystectomy Ortho: Other /CALL CENTER SPECIALIST: LEEP (Cervical surgery) Neuro: Other - Present Medications Home Medications: Ambulatory Orders Medication Instructions Recorded Confirmed Nitrofurantoin [Macrobid] 100 mg PO BID #10 cap 05/06/22 - Allergies Allergies/Adverse Reactions: Allergies Allergy/AdvReac Type Severity Reaction Status Date / Time tramadol AdvReac Severe Itching Verified 11/03/22 13:58 Latex, Natural Rubber AdvReac Intermediate Itching Verified 11/03/22 13:58 - Social History Does the pt smoke?: Yes Smoking Status: Current every day smoker Does the pt drink ETOH?: No Does the pt have substance abuse?: Yes - Immunizations Immunizations are current?: No Immunizations: TDAP >10years/unknown - POLST Patient has POLST: No PD ED PE NORMAL - General General: Alert and oriented X 3, No acute distress, Well developed/nourished - HEENT HEENT: Atraumatic, Moist mucous membranes - Neck Neck: Supple, no meningeal sign, No adenopathy - Cardiac Cardiac: RRR, No murmur - Respiratory Respiratory: No respiratory distress, Clear bilaterally - Abdomen Abdomen: Normal bowel sounds, Soft - Back Back: Other (Reproducible chest wall pain with palpation of the right upper chest anteriorly. 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 Relevant findings are: Rate: Rate (enter#) (81) Rhythm: NSR [place]: Normal Intervals: Normal AL QRS: Normal Ischemia: Normal ST segments Compare to prior EKG: Unchanged from prior EKG Computer interpretation: Agree with computer - Labs Labs: Laboratory Tests 11/03/22 11/03/22 11/03/22 17:04 17:04 17:04 WBC 13.6 H RBC 4.87 Hgb 14.1 Hct 43.5 MCV 89.3 MCH 29.0 MCHC 32.4 RDW 13.8 Plt Count 226 MPV 10.9 H Neut # (Auto) 8.9 H Lymph # (Auto) 3.7 H Garza # (Auto) 0.7 Eos # (Auto) 0.2 Baso # (Auto) 0.0 Absolute Nucleated RBC 0.00 Nucleated RBC % 0.0 Sodium 139 Potassium 4.0 Chloride 103 Carbon Dioxide 28 Anion Gap 8.0 BUN 7 Creatinine 0.6 Estimated GFR (MDRD) 108 Glucose 115 H Calcium 9.5 Troponin I High Sens < 2.3 L - Rads (name of study) cxr Relevant Findings:: Final report received (No acute cardiopulmonary process) PD Medical Decision Making - ED course Complexity details: reviewed results, re-evaluated patient, considered different ial, d/w patient ED course: 46-year-old female with active tobaccoism presents emergency department for evaluation of right upper chest pain for 2 days. No cough no fevers. She is PERC negative. Considered low risk for PE by Wells criteria. Pain was reproducible with palpation. Chest x-ray showed no findings of pneumonia, pneumothorax or pleural effusion. An EKG is interpreted by myself showed no ischemic findings. CBC, BMP and troponin were all negative. I suspect chest wall inflammation given the reproducible pain. Advise close follow-up with PCP. The usual emergent return precautions for worsening symptoms was discussed. Departure - Departure Disposition: 01 Home, Self Care Clinical Impression: Chest wall pain Condition: Stable Record reviewed to determine appropriate education?: Yes Instructions: ED Strain Chest Wall Comments: Your labs today did not show any worrisome findings. Your chest x-ray is normal. Your EKG did not show any findings of a heart attack. I do recommend he take Tylenol 500 mg with food 2-3 times a day or alternate with ibuprofen 600 mg also taken with food 2-3 times a day. Please discuss this ED visit with your primary care doctor. Return to the ER if you are having worsening symptoms.
[2022-11-03 17:13] LABS: BASOPHILS % (AUTO) 0.3 %; EOSINOPHILS # (AUTO) 0.2 10^3/uL (0.0-0.7); EOSINOPHILS % (AUTO) 1.7 %; HCT - HEMATOCRIT 43.5 % (37.0-47.0); HGB - HEMOGLOBIN 14.1 g/dL (12.0-16.0); LYMPHOCYTES # (AUTO) 3.7 10^3/uL (1.5-3.5); LYMPHOCYTES % (AUTO) 27.3 %; MEAN CORPUSCULAR HGB CONC 32.4 g/dL (32.0-36.0); MEAN CORPUSCULAR VOLUME 89.3 fL (81.0-99.0); MEAN PLATELET VOLUME 10.9 fL (7.9-10.8); MONOCYTES # (AUTO) 0.7 10^3/uL (0.0-1.0); MONOCYTES % (AUTO) 5.4 %; NEUTROPHILS # (AUTO) 8.9 10^3/uL (1.5-6.6); PLT - PLATELET COUNT 226 10^3/uL (130-450); RED BLOOD COUNT 4.87 10^6/uL (4.20-5.40); RED CELL DISTRIBUTION WIDTH 13.8 % (12.0-15.0); WHITE BLOOD COUNT 13.6 x10^3/uL (4.8-10.8)
[2022-11-03 17:19] LABS: CALCIUM 9.5 mg/dL (8.5-10.3); CREATININE 0.6 mg/dL (0.4-1.0)
== END 2022-11-03 18:11 | disposition home or self-care (01) ==
LOC: ED 13:55
DX: R07.89 Other chest pain (principal); F17.200 Nicotine dependence, unspecified, uncomplicated
CPT/HCPCS: 36415; 80048; 84484; 85025; 93005; 99283; 99284

== ENCOUNTER 2022-12-04 09:16 | Outpatient (CLI) | payer MEDICAID ==
[2022-12-04 09:51] LABS: CHOL/HDL RATIO 4.1 (<4.4); CHOLESTEROL 204 mg/dL; HDL CHOLESTEROL 50 mg/dL; LDL CHOLESTEROL,CALCULATED 128 mg/dL; LDL/HDL RATIO 2.6 (<4.4); TRIGLYCERIDES 132 mg/dL (48-352); VLDL CHOLESTEROL 26 mg/dL
[2022-12-04 10:06] LABS: THYROID STIMULATING HORMONE 0.57 uIU/mL (0.34-5.60)
[2022-12-04 10:41] LABS: ESTIMATED AVERAGE GLUCOSE 111 mg/dL (70-100); HEMOGLOBIN A1c% 5.5 % (4.27-6.07)
== END 2022-12-04 09:17 | disposition home or self-care (01) ==
LOC: LAB 09:16
PROVIDERS: ATTEND Registered Nurse
DX: R73.9 Hyperglycemia, unspecified (principal); Z13.220 Encounter for screening for lipoid disorders; Z13.29 Encounter for screening for other suspected endocrine disorder
CPT/HCPCS: 36415; 80061; 83036; 83721; 84443

== ENCOUNTER 2022-12-23 16:32 | Emergency (ER) | payer MEDICAID ==
[2022-12-23 16:47] VITALS: BP 119/75; O2SAT 97
--- NOTE | 2022-12-23 17:09 | ED Physician Documentation ---
PD HPI SKIN - Stated complaint Stated Complaint: BEE STING RT KNEE - Chief complaint Chief Complaint: Allergic Rx - History obtained from History obtained from: Patient - Additional information Additional information: The patient comes to the emergency department chief complaint of redness and swelling of her right knee after bee sting yesterday. She states she thinks it was a hornet and she had immediate pain in the area. Over the course of the evening yesterday, she noticed an increase in redness and swelling, but this morning when she woke up, they seem to hurt more the head the day before. She also complains of itching. No spreading of the redness to anywhere else. No streaking. No fevers or chills. No history of allergic reaction to bee sting or anaphylaxis. No other complaints at this time. 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 : Incontinence, Frequency HEENT: Other Psych: Depression Musculoskeletal: None Derm: None - Past Surgical History Past Surgical History: Yes General: Cholecystectomy Ortho: Other /TECHNICAL ACCOUNT MANAGER: LEEP (Cervical surgery) Neuro: Other - Present Medications Home Medications: Ambulatory Orders Medication Instructions Recorded Confirmed traZODone [Desyrel] 50 mg PO PRN PRN 12/23/22 12/23/22 - Allergies Allergies/Adverse Reactions: Allergies Allergy/AdvReac Type Severity Reaction Status Date / Time tramadol AdvReac Severe Itching Verified 11/03/22 13:58 Latex, Natural Rubber AdvReac Intermediate Itching Verified 11/03/22 13:58 - Social History Does the pt smoke?: Yes Smoking Status: Current every day smoker Does the pt drink ETOH?: No Does the pt have substance abuse?: Yes - Immunizations Immunizations are current?: No Immunizations: TDAP >10years/unknown - POLST Patient has POLST: No PD ED PE NORMAL - Vitals Vital signs reviewed: Yes - General General: Alert and oriented X 3, No acute distress, Well developed/nourished - HEENT HEENT: Atraumatic, PERRL - Neck Neck: Supple, no meningeal sign - Respiratory Respiratory: No respiratory distress - Derm Derm: Warm and dry, Other (Oh approximately 8 cm diameter area of erythema and mild edema over superolateral aspect of right knee. No induration, fluctuance, or drainage. No streaking.) - Extremities Extremities: No deformity - Neuro Neuro: Alert and oriented X 3 - Psych Psych: Normal mood, Normal affect Results - Vitals Vitals: Vital Signs - 24 hr 12/23/22 16:42 Temperature 36.2 C L Heart Rate 77 Respiratory 20 Rate Blood Pressure 119/75 O2 Saturation 97 Oxygen O2 Source Room air PD Medical Decision Making - ED course Complexity details: considered differential, d/w patient, d/w family ED course: I discussed with the patient that she has a localized reaction to the venom sting itself, but that this will be expected to be self-limited. We have discussed that the patient may take Benadryl if she would like, and also may use ice packs, but this is not obligatory. We have discussed symptomatic management at home and the usual indications for return. Departure - Departure Disposition: 01 Home, Self Care Clinical Impression: Hymenoptera reaction Condition: Stable Instructions: ED Bite Sting Insect Local Allergic React Comments: You have a localized reaction to the venom from the sting, but there is no evidence of infection or a more generalized allergic reaction. Severe allergic reactions, known as anaphylactic reactions, happen nearly immediately, within minutes of exposure to the thing to which a person is allergic. As such, given that its been at least 24 hours since the sting, you are no longer at risk for this type of reaction. You may use Benadryl if desired, as well as ice packs to help with the irritation and swelling. Mostly though, the reaction will go down on its own in the next few days. Please follow-up with your primary doctor as needed. Forms: PCP List
== END 2022-12-23 17:14 | disposition home or self-care (01) ==
LOC: ED 16:32
DX: T63.441A Toxic effect of venom of bees, accidental (unintentional), initial encounter (principal); F17.200 Nicotine dependence, unspecified, uncomplicated
CPT/HCPCS: 99281; 99283

== ENCOUNTER 2023-03-21 22:09 | Emergency (ER) | payer MEDICAID ==
[2023-03-21 22:37] LABS: BASOPHILS % (AUTO) 0.5 %; EOSINOPHILS % (AUTO) 2.8 %; HCT - HEMATOCRIT 44.1 % (37.0-47.0); HGB - HEMOGLOBIN 14.4 g/dL (12.0-16.0); LYMPHOCYTES % (AUTO) 45.3 %; MEAN CORPUSCULAR HEMOGLOBIN 29.4 pg (27.0-31.0); MEAN CORPUSCULAR HGB CONC 32.7 g/dL (32.0-36.0); MEAN CORPUSCULAR VOLUME 90.2 fL (81.0-99.0); MEAN PLATELET VOLUME 10.7 fL (7.9-10.8); MONOCYTES % (AUTO) 5.4 %; NEUTROPHILS % (AUTO) 45.7 %; PLT - PLATELET COUNT 264 10^3/uL (130-450); RED BLOOD COUNT 4.89 10^6/uL (4.20-5.40); RED CELL DISTRIBUTION WIDTH 13.2 % (12.0-15.0)
[2023-03-21 22:40] LABS: ABNORMAL LYMPHS % (MANUAL) 0 %
[2023-03-21 22:49] LABS: ALBUMIN 4.7 g/dL (3.2-5.5); BILIRUBIN,TOTAL 0.3 mg/dL (0.2-1.0); CALCIUM 9.8 mg/dL (8.5-10.3); CREATININE 0.6 mg/dL (0.6-1.3); POTASSIUM 4.3 mmol/L (3.5-4.5)
[2023-03-21 22:50] LABS: PARTIAL THROMBOPLASTIN TIME 28.4 secs (24.9-33.3)
[2023-03-21 22:54] LABS: PT - PROTHROMBIN TIME 11.1 secs (9.9-12.6)
[2023-03-21 23:02] LABS: BAND NEUTROPHILS % (MANUAL) 1 %; DIFFERENTIAL COMMENT MANUAL DIFFERENTIAL; EOSINOPHILS # (MANUAL) 0.6 10^3/uL (0-0.7); LYMPHOCYTES # (MANUAL) 5.5 10^3/uL (1.5-3.5); LYMPHOCYTES % (MANUAL) 19 %; MONOCYTES # (MANUAL) 0.1 10^3/uL (0.0-1.0); NEUTROPHILS # (MANUAL) 5.8 10^3/uL (1.5-6.6); PLATELET ESTIMATE, MANUAL NORMAL (130-450,000) (NORMAL); PLATELET MORPHOLOGY NORMAL APPEARANCE (NORMAL); RBC MORPHOLOGY (MULTIPLE) NORMAL APPEARANCE (NORMAL); REACTIVE LYMPHS % (MANUAL) 27 %
--- NOTE | 2023-03-21 23:34 | ED Physician Documentation ---
History of Present Illness - Stated complaint Stated Complaint: RECTAL BLEEDING - Chief complaint Chief Complaint: General - History obtained from History obtained from: Patient - Additonal information Additional information: 47yF presents to the ED for rectal Bleeding intermittent over the past 13 years, worsening tonight. States she has been constipated and does have a history of hemorrhoids. Denies abdominal pain, nausea vomiting or hematemesis. Denies urinary symptoms. 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 : Incontinence, Frequency HEENT: Other Psych: Depression Musculoskeletal: None Derm: None - Past Surgical History Past Surgical History: Yes General: Cholecystectomy Ortho: Other /UTILITY TRACTOR OPERATOR: LEEP (Cervical surgery) Neuro: Other - Present Medications Home Medications: Ambulatory Orders Medication Instructions Recorded Confirmed traZODone [Desyrel] 50 mg PO PRN PRN 12/23/22 12/23/22 Hydrocortisone Supp [Anusol-Hc] 25 mg [place] QPM PRN #10 supp 03/21/23 Sennosides/Docusate Sodium 1 each PO QDAC PRN #30 tablet 03/21/23 [Senna-Docusate Sodium Tablet] polyethylene glycoL 3350 [Miralax] 17 gm PO DAILY #15 packet 03/21/23 - Allergies Allergies/Adverse Reactions: Allergies Allergy/AdvReac Type Severity Reaction Status Date / Time tramadol AdvReac Severe Itching Verified 03/21/23 22:20 Latex, Natural Rubber AdvReac Intermediate Itching Verified 03/21/23 22:20 - Social History Does the pt smoke?: Yes Smoking Status: Current every day smoker Does the pt drink ETOH?: No Does the pt have substance abuse?: Yes - Immunizations Immunizations are current?: No Immunizations: TDAP >10years/unknown - POLST Patient has POLST: No PD ED PE NORMAL - Vitals Vital signs reviewed: Yes - General General: Alert and oriented X 3, No acute distress, Well developed/nourished - HEENT HEENT: Atraumatic, PERRL, EOMI - Neck Neck: Supple, no meningeal sign - Abdomen Abdomen: Non tender, Non distended - Rectal Rectal: Other (External and internal hemorrhoids on JUSTO small amount of blood.) Results - Vitals Vitals: Vital Signs - 24 hr 03/21/23 22:10 Temperature 36.2 C L Heart Rate 92 Respiratory 17 Rate Blood Pressure 123/73 O2 Saturation 97 Oxygen O2 Source Room air - Labs Labs: Laboratory Tests 03/21/23 03/21/23 03/21/23 22:29 22:29 22:29 WBC 12.0 H RBC 4.89 Hgb 14.4 Hct 44.1 MCV 90.2 MCH 29.4 MCHC 32.7 RDW 13.2 Plt Count 264 MPV 10.7 Neut # (Auto) Not Reportable Lymph # (Auto) Not Reportable Stark # (Auto) Not Reportable Eos # (Auto) Not Reportable Baso # (Auto) Not Reportable Absolute Nucleated RBC Not Reportable Total Counted 100 Band Neuts % (Manual) 1 Reactive Lymphs % (Man) 27 Abnorm Lymph % (Manual) 0 Nucleated RBC % Not Reportable Neutrophils # (Manual) 5.8 Lymphocytes # (Manual) 5.5 H Monocytes # (Manual) 0.1 Eosinophils # (Manual) 0.6 Basophils # (Manual) 0.0 Differential Comment MANUAL DIFFERENTIAL Platelet Estimate NORMAL (130-450,000) Platelet Morphology NORMAL APPEARANCE RBC Morph Micro Appear NORMAL APPEARANCE PT 11.1 INR 1.0 APTT 28.4 Sodium 138 Potassium 4.3 Chloride 103 Carbon Dioxide 28 Anion Gap 7.0 BUN 14 Creatinine 0.6 Estimated GFR (MDRD) 108 Glucose 120 H Calcium 9.8 Total Bilirubin 0.3 AST 15 ALT 15 Alkaline Phosphatase 85 Total Protein 7.0 Albumin 4.7 Globulin 2.3 Albumin/Globulin Ratio 2.0 Lipase 47 Blood Type Antibody Screen 03/21/23 22:29 WBC RBC Hgb Hct MCV MCH MCHC RDW Plt Count MPV Neut # (Auto) Lymph # (Auto) Stark # (Auto) Eos # (Auto) Baso # (Auto) Absolute Nucleated RBC Total Counted Band Neuts % (Manual) Reactive Lymphs % (Man) Abnorm Lymph % (Manual) Nucleated RBC % Neutrophils # (Manual) Lymphocytes # (Manual) Monocytes # (Manual) Eosinophils # (Manual) Basophils # (Manual) Differential Comment Platelet Estimate Platelet Morphology RBC Morph Micro Appear PT INR APTT Sodium Potassium Chloride Carbon Dioxide Anion Gap BUN Creatinine Estimated GFR (MDRD) Glucose Calcium Total Bilirubin AST ALT Alkaline Phosphatase Total Protein Albumin Globulin Albumin/Globulin Ratio Lipase Blood Type O POSITIVE Antibody Screen NEGATIVE PD Medical Decision Making - ED course ED course: 47-year-old woman presents with constipation and bleeding due to rectal hemorrhoids. Hemoglobin 14.4. Prescriptions for Anusol and stool regimen sent to pharmacy. She also requested I provide her with her BMI and information about healthy eating for a postcholecystectomy diet. Return precautions were discussed. Plan to follow-up with her primary care provider. Departure - Departure Disposition: 01 Home, Self Care Clinical Impression: Hemorrhoids Condition: Stable Instructions: ANUSOL Suppositories, ED Hemorrhoids Prescriptions: Hydrocortisone Supp [Anusol-Hc] 25 mg MN QPM PRN #10 supp PRN Reason: Hemorrhoids polyethylene glycoL 3350 [Miralax] 17 gm PO DAILY #15 packet Sennosides/Docusate Sodium [Senna-Docusate Sodium Tablet] 1 each PO QDAC PRN #30 tablet PRN Reason: Constipation Comments: You were seen in the emergency department for rectal bleeding due to hemorrhoids. Prescriptions were sent electronically to [facility] pharmacy. Please follow-up with your primary care provider and return to the emergency department if you have any new or worsening symptoms or other concerns. Your BMI is 32. [place] body weight is BMI 18-22, therefore you would benefit from lowering your BMI. Talk to your doctor about options. A post cholecystectomy diet is a diet that helps prevent or reduce symptoms af ter gallbladder removal1. Some general guidelines [id number]: Eat five to six small meals a day that are low in fat and high in protein and fiber. Avoid gas-producing foods like nuts, legumes, cabbage, broccoli, and cereal until your digestion improves. Include foods that support bile production and digestion, such as beets, cucumbers, okra, sweet potatoes, avocados, acidic foods, and omega-3 fatty a cids. Chew your food well and eat in a relaxed manner. Avoid spicy, fried, or greasy foods that may trigger diarrhea or nausea.
[2023-03-21 23:43] VITALS: BP 129/85; O2SAT 100
== END 2023-03-21 23:44 | disposition home or self-care (01) ==
LOC: ED 22:09
DX: K62.5 Hemorrhage of anus and rectum (principal); K64.4 Residual hemorrhoidal skin tags; K64.8 Other hemorrhoids; F17.200 Nicotine dependence, unspecified, uncomplicated; Z90.49 Acquired absence of other specified parts of digestive tract; Z71.3 Dietary counseling and surveillance; Z68.32 Body mass index [BMI] 32.0-32.9, adult
CPT/HCPCS: 36415; 80053; 83690; 85025; 85610; 85730; 86850; 86900; 86901; 99282; 99283

== ENCOUNTER 2023-04-23 08:00 | Outpatient (CLI) | payer MEDICAID ==
--- NOTE | 2023-04-23 15:43 | XRAY Report ---
PROCEDURE: Ankle 3+V LT INDICATIONS: LEFT ANKLE PAIN TECHNIQUE: 3 views of the ankle were acquired. COMPARISON: None. FINDINGS: Bones: Rounded ossification along the inferior margin of the lateral malleolus. Soft tissues: No tibiotalar joint effusion. Achilles tendon appears normal. IMPRESSION: No acute bony abnormality. No effusion. Remote avulsion fracture of the lateral malleolus. Reviewed by: Teddy Parry MD on 04/23/2023 3:42 PM PST Approved by: Teddy Parry MD on 04/23/2023 3:42 PM [facility] Station ID: [id number]
--- NOTE | 2023-04-23 15:55 | XRAY Report ---
PROCEDURE: Wrist 2 View RT INDICATIONS: PAIN IN RIGHT WRIST TECHNIQUE: 2 views of the wrist were acquired. COMPARISON: None. FINDINGS: Bones: No displaced fracture. No dislocation. Soft tissues: No suspicious calcifications. IMPRESSION: No acute radiographic abnormality. If there is high concern for occult injury, consider repeat radiog kathie or cross-sectional imaging. Reviewed by: Stefan Orozco MD on 04/23/2023 3:53 PM PST Approved by: Stefan Orozco MD on 04/23/2023 3:53 PM [facility] Station ID: [id number]
--- NOTE | 2023-04-23 15:56 | XRAY Report ---
PROCEDURE: Shoulder 2+V LT INDICATIONS: PAIN IN LEFT SHOULDER TECHNIQUE: 3 views of the shoulder were acquired. COMPARISON: 07/10/2021 FINDINGS: Bones: No displaced fracture or dislocation. Soft tissues: Suspected calcific tendinopathy again seen. IMPRESSION: No acute radiographic abnormality. If there is high concern for occult injury, consider repeat radiog kathie or cross-sectional imaging. Calcific tendinopathy. Reviewed by: Stefan Orozco MD on 04/23/2023 3:55 PM PST Approved by: Stefan Orozco MD on 04/23/2023 3:55 PM PST Station ID: [id number]
--- NOTE | 2023-04-23 15:56 | XRAY Report ---
PROCEDURE: Elbow 1-2V RT INDICATIONS: PAIN IN RIGHT ELBOW TECHNIQUE: 3 views of the elbow were acquired. COMPARISON: 11/06/2022 FINDINGS: Bones: No displaced fracture. No dislocation. Soft tissues: No significant joint effusion. IMPRESSION: No acute radiographic abnormality. If there is high concern for occult injury, consider repeat radiog kathie or cross-sectional imaging. Reviewed by: Stefan Orozco MD on 04/23/2023 3:54 PM PST Approved by: Stefan Orozco MD on 04/23/2023 3:54 PM PST Station ID: [id number]
== END 2023-04-23 23:59 | disposition home or self-care (01) ==
LOC: DI.S 08:00
PROVIDERS: ATTEND Registered Nurse
DX: M25.531 Pain in right wrist (principal); M25.521 Pain in right elbow; M25.512 Pain in left shoulder; M25.572 Pain in left ankle and joints of left foot; S82.62XD Displaced fracture of lateral malleolus of left fibula, subsequent encounter for closed fracture with routine healing

== ENCOUNTER 2023-05-22 07:00 | Outpatient (CLI) | payer MEDICAID | END 2023-05-22 23:59 | disposition home or self-care (01) | LOC: LAB.S 07:00 | PROVIDERS: ATTEND Registered Nurse | DX: N30.00 Acute cystitis without hematuria (principal) | CPT/HCPCS: 87077; 87086; 87181 ==

== ENCOUNTER 2023-07-27 22:46 | Emergency (ER) | payer MEDICAID ==
--- NOTE | 2023-07-27 22:50 | ED Physician Documentation ---
PD HPI HEENT - Stated complaint Stated Complaint: RT EAR PX - History obtained from History obtained from: Patient - Additional information Additional information: HPI from patient. 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 Pain is constant and steadily progressive. She was at home at rest watching television when the symptoms started. Denies injury, denies fever. She denies history of similar symptoms. 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: LEEP (Cervical surgery) Neuro: Other - Present Medications Home Medications: Ambulatory Orders Medication Instructions Recorded Confirmed traZODone [Desyrel] 50 mg PO PRN PRN 12/23/22 12/23/22 Hydrocortisone Supp [Anusol-Hc] 25 mg NC QPM PRN #10 supp 03/21/23 Sennosides/Docusate Sodium 1 each PO QDAC PRN #30 tablet 03/21/23 [Senna-Docusate Sodium Tablet] polyethylene glycoL 3350 [Miralax] 17 gm PO DAILY #15 packet 03/21/23 Amox/Clav 875/125 [Augmentin 1 tablet PO Q12H 7 Days #14 tablet 07/27/23 875/125 Tab] HYDROcod/ACETAM 5/325 [[place] 5/325] 1 - 2 tablet PO Q6H PRN #14 tablet 07/27/23 - Allergies Allergies/Adverse Reactions: Allergies Allergy/AdvReac Type Severity Reaction Status Date / Time tramadol AdvReac Severe Itching Verified 07/27/23 22:54 Latex, Natural Rubber AdvReac Intermediate Itching Verified 07/27/23 22:54 - Social History Does the pt smoke?: Yes Smoking Status: Current every day smoker Does the pt drink ETOH?: No Does the pt have substance abuse?: Yes - Immunizations Immunizations are current?: No Immunizations: TDAP >10years/unknown - POLST Patient has POLST: No PD ED PE NORMAL - Vitals Vital signs reviewed: Yes - General General: Alert and oriented X 3, No acute distress, Well developed/nourished - HEENT HEENT: Moist mucous membranes, Pharynx benign PD ED PE EXPANDED - HEENT HEENT: R TM red, R TM bulging, R TM loss of landmarks Results - Vitals Vitals: Vital Signs - 24 hr 07/27/23 22:54 Temperature 36.8 C Heart Rate 100 Respiratory 16 Rate Blood Pressure 149/87 H O2 Saturation 95 Oxygen O2 Source Room air PD Medical Decision Making - ED course Complexity details: considered differential, d/w patient ED course: HPI and findings on right ear exam c/w right OM. Given 875mg PO augmentin in ED as well as two tablets 5mg/325mg hydrocodone/acetaminophen. Diagnosis and expected course of illness d/w patient. Prescriptions for augmentin and vicodin are electronically submitted to [facility] in [place] Departure - Departure Disposition: 01 Home, Self Care Clinical Impression: Otitis media Instructions: ED Otitis Media Acute Adult Prescriptions: Amox/Clav 875/125 [Augmentin 875/125 Tab] 1 tablet PO Q12H 7 Days #14 tablet HYDROcod/ACETAM 5/325 [[place] 5/325] 1 - 2 tablet PO Q6H PRN #14 tablet PRN Reason: Pain Comments: Your description of symptoms, along with the findings on the physical exam, are consistent with a middle right ear infection. You were given the first dose of an antibiotic (Augmentin) in the emergency department along with Vicodin (narcotic/opiate pain medication). I have electronically submitted prescriptions for both of these medications to the [facility] pharmacy in [place]. I am prescribing a short course of narcotic pain medication for you. These are potentially dangerous and addictive medications that should be used carefully. These medications may constipate you. Take an [id number] stool softener (docusate) twice daily with plenty of water while taking these medications. If you go 24 hours without a bowel movement, take [id number] miralax, per package instructions. Do not drink or drive while taking these medications. If you received narcotic or sedating medications while in the emergency department, do not drive for 24 hours. Store this medication in a safe, secure place and out of reach of children. It is a violation of federal law to give or sell this medication to another person or to use in a manner other than prescribed. The ED will not refill narcotic prescriptions, including prescriptions lost or stolen. To dispose of unwanted medications: 1. [facility] at [address] in [place] has a medication drop box. They accept prescription medications (in pill form) Saturday through Saturday 9:00 a.m. to 5:00 p.m. 2. [facility] [employer] accepts prescription medications (in pill form only) for disposal year round. Call for more information. 3. Contact the [facility] for the next [facility] sponsored prescription drug collection event. , [phone], or [phone];
[2023-07-27 23:01] VITALS: BP 149/87; O2SAT 95
[2023-07-27] MEDS: AMOX/CLAV 875 MG/125 MG TABLET PO STA (23:18)
[2023-07-27] MEDS: HYDROcod/ACETAM 5/325 MG TABLET PO STA (23:18)
== END 2023-07-27 23:24 | disposition home or self-care (01) ==
LOC: ED 22:46
DX: H66.91 Otitis media, unspecified, right ear (principal); F17.200 Nicotine dependence, unspecified, uncomplicated
CPT/HCPCS: 99283; A9270

== ENCOUNTER 2023-11-15 12:02 | Emergency (ER) | payer MEDICAID ==
--- NOTE | 2023-11-15 12:24 | ED Physician Documentation ---
History of Present Illness - Stated complaint Stated Complaint: GI/ - Chief complaint Chief Complaint: Abd Pain - History obtained from History obtained from: Patient - Additonal information Additional information: Patient is a 47-year-old female presenting to the emergency department with passing large blood clot yesterday afternoon about the size of a golf ball. Patient notes she has been having some blood in her stool for over 10 years now. She notes she has a history of hemorrhoids but has not taking anything for them. She notes she became concerned after passing a large blood clot yeste rday. She notes she has been more fatigued than normal but denies any shortness of breath associated with her symptoms. She has some lower abdominal cramping that is pretty constant but today slightly worse than normal. She describes as intermittent cramping in her lower abdomen. She denies any unilateral lower abdominal pain. No nausea vomiting no fevers or chills. She denies any vaginal bleeding no difficulty with urination. She has a history of abdominal surgery with cholecystectomy but no other abdominal surgeries. She denies any diarrhea notes she has had formed stools recently. 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: LEEP (Cervical surgery) Neuro: Other - Present Medications Home Medications: Ambulatory Orders Medication Instructions Recorded Confirmed traZODone [Desyrel] 50 mg PO PRN PRN 12/23/22 12/23/22 Hydrocortisone Supp [Anusol-Hc] 25 mg [place] QPM PRN #10 supp 03/21/23 Sennosides/Docusate Sodium 1 each PO QDAC PRN #30 tablet 03/21/23 [Senna-Docusate Sodium Tablet] polyethylene glycoL 3350 [Miralax] 17 gm PO DAILY #15 packet 03/21/23 Amox/Clav 875/125 [Augmentin 1 tablet PO Q12H 7 Days #14 tablet 07/27/23 875/125 Tab] HYDROcod/ACETAM 5/325 [[place] 5/325] 1 - 2 tablet PO Q6H PRN #14 tablet 07/27/23 Pramoxine HCl/Zinc Oxide 56 gm TP BID 10 Days #60 gm 11/15/23 [Hemorrhoid 1%-12.5% Ointment] polyethylene glycoL 3350(BULK) 17 gm PO DAILY PRN #1 each 11/15/23 [Miralax] - Allergies Allergies/Adverse Reactions: Allergies Allergy/AdvReac Type Severity Reaction Status Date / Time tramadol AdvReac Severe Itching Verified 11/15/23 12:15 Latex, Natural Rubber AdvReac Intermediate Itching Verified 11/15/23 12:15 - Social History Does the pt smoke?: Yes Smoking Status: Current every day smoker Does the pt drink ETOH?: No Does the pt have substance abuse?: Yes - Immunizations Immunizations are current?: No Immunizations: TDAP >10years/unknown - POLST Patient has POLST: No PD ED PE NORMAL - Vitals Vital signs reviewed: Yes - General General: Alert and oriented X 3 - HEENT HEENT: Atraumatic - Neck Neck: Supple, no meningeal sign - Cardiac Cardiac: RRR, No murmur, No gallop - Respiratory Respiratory: No respiratory distress - Abdomen Abdomen: Normal bowel sounds, Soft, Non tender, Non distended - Female Female : Deferred - Rectal Rectal: Other (Nonthrombosed nonbleeding hemorrhoid noted at 6 o'clock position. No significant tenderness on exam rectal exam shows no significant stool burden and guaiac test is negative.) - Back Back: No CVA TTP - Derm Derm: Normal color - Neuro Neuro: Alert and oriented X 3 Results - Vitals Vitals: Vital Signs - 24 hr 11/15/23 12:05 Temperature 36.2 C L Heart Rate 72 Respiratory 18 Rate Blood Pressure 149/103 H O2 Saturation 100 Oxygen O2 Source Room air - Labs Labs: Microbiology 11/15/23 13:02 Occult Blood - Final Stool Laboratory Tests 11/15/23 11/15/23 12:46 12:46 WBC 10.8 RBC 5.09 Hgb 14.9 Hct 46.2 MCV 90.8 MCH 29.3 MCHC 32.3 RDW 13.9 Plt Count 243 MPV 10.4 Neut # (Auto) 6.2 Lymph # (Auto) 3.6 H Steele # (Auto) 0.6 Eos # (Auto) 0.2 Baso # (Auto) 0.1 Absolute Nucleated RBC 0.00 Nucleated RBC % 0.0 Sodium 138 Potassium 3.7 Chloride 103 Carbon Dioxide 28 Anion Gap 7.0 BUN 8 Creatinine 0.5 L Estimated GFR (MDRD) 133 Glucose 102 Calcium 10.0 Magnesium 1.6 L Total Bilirubin 0.7 AST 13 ALT 11 Alkaline Phosphatase 84 Total Protein 7.4 Albumin 4.8 Globulin 2.6 Albumin/Globulin Ratio 1.8 Lipase 16 PD Medical Decision Making - ED course ED course: Patient is a 47-year-old female presenting to the emergency department with abdominal cramping and rectal pain with bleeding. Patient notes symptoms have been going on for years but worsened within the last day as she passed a large blood clot about the size of a golf ball. She denies ever having this happen to her before. She denies any bleeding since then. She notes she has chronic diarrhea secondary to her history of cholecystectomy but has had's been light brown and soft. She denies any black stools. She denies any abdominal pain at this time no fevers or chills. Labs obtained here in the emergency department for further evaluation showed stable hemoglobin of 14.9 additionally no appreciable leukocytosis concerning for acute infection. Guaiac test was negative and on rectal exam patient has nonthrombosed nonbleeding external hemorrhoid. No abdominal pain on palpation of the lower abdomen at this time. Abdomen is soft without rebound or guarding noted. Discussed with patient reassuring workup she notes she has not had any bloody stools since her 1 yesterday. Instructed patient to take suppositories and MiraLAX to help with her symptoms of hemorrhoids. Will also prescribe hemorrhoid ointment to help with her external hemorrhoids as well. Given no thrombosed or bleeding hemorrhoid no acute intervention performed at this time. Patient updated on return precautions including fevers worsening abdominal pain persistent bleeding nausea or vomiting. Patient is agreeable with this plan will follow-up with PCP in outpatient setting. She will take medications as prescribed. Departure - Departure Disposition: 01 Home, Self Care Clinical Impression: External hemorrhoid, bleeding, Internal hemorrhoid Condition: Good Instructions: ED Hemorrhoids Prescriptions: Pramoxine HCl/Zinc Oxide [Hemorrhoid 1%-12.5% Ointment] 56 gm TP BID 10 Days #60 gm polyethylene glycoL 3350(BULK) [Miralax] 17 gm PO DAILY PRN #1 each PRN Reason: Constipation Comments: You were seen here in the emergency department for your rectal pain and bleeding I have started you on hemorrhoid cream and suppository to help with your symptoms. Your labs here were reassuring please follow-up with PCP in outpatient setting for reevaluation return to emergency department with any new or worsening symptoms. Forms: PCP List
[2023-11-15 12:51] LABS: BASOPHILS # (AUTO) 0.1 10^3/uL (0.0-0.1); BASOPHILS % (AUTO) 0.7 %; EOSINOPHILS # (AUTO) 0.2 10^3/uL (0.0-0.7); EOSINOPHILS % (AUTO) 2.1 %; HCT - HEMATOCRIT 46.2 % (37.0-47.0); HGB - HEMOGLOBIN 14.9 g/dL (12.0-16.0); LYMPHOCYTES # (AUTO) 3.6 10^3/uL (1.5-3.5); LYMPHOCYTES % (AUTO) 33.8 %; MEAN CORPUSCULAR HEMOGLOBIN 29.3 pg (27.0-31.0); MEAN CORPUSCULAR HGB CONC 32.3 g/dL (32.0-36.0); MEAN CORPUSCULAR VOLUME 90.8 fL (81.0-99.0); MEAN PLATELET VOLUME 10.4 fL (7.9-10.8); MONOCYTES # (AUTO) 0.6 10^3/uL (0.0-1.0); MONOCYTES % (AUTO) 5.9 %; NEUTROPHILS # (AUTO) 6.2 10^3/uL (1.5-6.6); NEUTROPHILS % (AUTO) 57.2 %; PLT - PLATELET COUNT 243 10^3/uL (130-450); RED BLOOD COUNT 5.09 10^6/uL (4.20-5.40); RED CELL DISTRIBUTION WIDTH 13.9 % (12.0-15.0); WHITE BLOOD COUNT 10.8 x10^3/uL (4.8-10.8)
[2023-11-15 13:10] LABS: ALBUMIN 4.8 g/dL (3.2-5.5); ALBUMIN/GLOBULIN RATIO 1.8 (1.0-2.2); BILIRUBIN,TOTAL 0.7 mg/dL (0.2-1.0); CREATININE 0.5 mg/dL (0.6-1.3); MAGNESIUM 1.6 mg/dL (1.7-2.3); POTASSIUM 3.7 mmol/L (3.5-4.5); TOTAL PROTEIN 7.4 g/dL (6.4-8.9)
[2023-11-15 14:37] VITALS: BP 150/95; O2SAT 99
== END 2023-11-15 14:24 | disposition home or self-care (01) ==
LOC: ED 12:02
DX: K62.5 Hemorrhage of anus and rectum (principal); K64.4 Residual hemorrhoidal skin tags; K64.8 Other hemorrhoids; F17.200 Nicotine dependence, unspecified, uncomplicated
CPT/HCPCS: 36415; 80053; 82272; 83690; 83735; 85025; 99283